=== PATIENT | female | born 1960 | race Caucasian/White ===

== ENCOUNTER → 2017-11-07 10:41 | Outpatient (CLI) | payer SELFPAY ==
[2017-11-07 12:22] LABS: Absolute Neutrophil Count 4.1 X10^3/uL (2.0-7.7); Basophil# 0.03 X10^3/uL; Basophil% 0.5 % (0-1); Eosinophil# 0.11 X10^3/uL; Eosinophils% 1.7 % (0-5); Hematocrit 40.2 % (37-47); Hemoglobin 13.7 g/dl (12.0-15.0); Lymphocyte % 25.1 % (19-41); Mean Corp Hgb Conc 34.1 g/gl (32-36); Mean Corpuscular Hgb 31.4 pg (27.0-32.0); Mean Corpuscular Volume 92.2 fL (81-99); Mean Platelet Vol. 10.6 fl (6.2-12.0); Monocyte# 0.51 X10^3/uL; Neutrophil # 4.11 X10^3/uL (2.7-7.7); Neutrophil % 64.5 % (47-70); Platelet Count 219 K/mm3 (150-450); RBC Distribution Width CV 13.8 % (11.6-14.6); RBC Distribution Width SD 46.4 fl (35.1-43.9); Red Blood Count 4.36 M/mm3 (4.2-5.4); White Blood Count 6.4 K/mm3 (4.4-11.0)
[2017-11-07 12:30] LABS: POSITIVE COUNT NO; POSITIVE DIFFERENTIAL NO; POSITIVE MORPHOLOGY NO
[2017-11-07 12:48] LABS: Hemoglobin A1c 5.2 % (4.2-6.3)
[2017-11-07 13:07] LABS: ALB/GLOB Ratio 1.2 RATIO (0.9-2.4); AST(SGOT) 16 U/L (15-37); Alanine Aminotransfer ALT/SGPT 29 U/L (13-56); Albumin, Serum 3.9 g/dL (3.2-5.0); Alkaline Phosphatase 105 U/L (45-117); BUN 16 mg/dL (7-18); BUN/Creat Ratio 21.3 RATIO (10-20); Calcium,Total 8.8 mg/dL (8.5-10.1); Chloride 106 mmol/L (98-107); Cholesterol 152 mg/dL (200); Creatinine, Serum 0.75 mg/dL (0.55-1.02); EST Glomerular Filtration Rate 85 mL/min (>60); Est Glom Filt Rate - Afr Amer 102 mL/min (>60); Globulin 3.3 g/dL (2.2-4.2); Glucose 105 mg/dL (74-106); Protein, Total 7.2 g/dL (6.4-8.2); Sodium Level 139 mmol/L (136-145); Triglycerides 58 mg/dL
[2017-11-07 13:08] LABS: Anion Gap 7 (5-15); High Density Lipoprotein 64 mg/dL; Thyroid Stim Hormone (TSH) 1.12 uIU/mL (0.358-3.74); Very Low Density Lipoprotein 12 mg/dL (5-40)
== END ==
PROVIDERS: Family Provider Family Medicine; PCP Family Medicine; Visit Provider Family Medicine
DX: N76.0 Acute vaginitis (principal); Z13.29 Encounter for screening for other suspected endocrine disorder; Z13.220 Encounter for screening for lipoid disorders; Z83.3 Family history of diabetes mellitus
CPT/HCPCS: 36415; 80053; 80061; 83036; 84443; 85025

== ENCOUNTER → 2017-11-08 16:04 | Outpatient (CLI) | payer SELFPAY ==
[2017-11-14 15:32] LABS: HPV Reflexed? NOT INDICATED
== END ==
PROVIDERS: PCP Family Medicine; Visit Provider Family Medicine
DX: Z78.0 Asymptomatic menopausal state (principal)
CPT/HCPCS: 88175; G0145

== ENCOUNTER → 2017-12-18 08:59 | Outpatient (CLI) | payer OTHER, SELFPAY ==
--- NOTE | 2017-12-18 09:08 | RAD_ITS ---
STUDY: X-RAY - RIGHT HAND REASON FOR EXAM: Pain and swelling. TECHNIQUE: 3 view(s) of the hand. COMPARISON: None. FINDINGS: Normal radiocarpal articulation. Normal distal radioulnar joint. 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 Normal carpal articulations Normal carpometacarpal articulation of the thumb. Normal second through fifth carpometacarpal joints. Normal metacarpi. Normal metacarpophalangeal joint of the thumb. Normal interphalangeal joint of the thumb. Normal proximal and distal phalanges of the thumb. Normal metacarpophalangeal joints of the second through fifth fingers. Normal proximal and distal interphalangeal joints of the second through fifth fingers. Normal phalanges of the second through fifth fingers. The soft tissue structures are unremarkable. RAD/Hand Min 3 Views IMPRESSION: Osseous lunotriquetral coalition. Otherwise, unremarkable x-ray examination of the right hand. Electronically Signed: Anup Vang MD at 10:01 EDT Tel , Service support ,
== END ==
PROVIDERS: Family Provider Family Medicine; PCP Family Medicine; Visit Provider Orthopaedic Surgery
DX: M79.641 Pain in right hand (principal)
CPT/HCPCS: 73130

== ENCOUNTER → 2020-06-18 08:41 | Outpatient (CLI) | payer MEDICAID, SELFPAY ==
[2018-10-08 08:21] VITALS: BMI 35.3
--- NOTE | 2020-06-18 09:10 | RAD_ITS ---
STUDY: X-RAY - PELVIS AND BILATERAL HIPS REASON FOR EXAM: Female, 59 years old. Bilateral hip pain x 6 months, nki TECHNIQUE: AP view of the pelvis.? 2 views of the right hip, and 2 views of the left hip were obtained. COMPARISON: None. FINDINGS: There is a non-specific bowel gas pattern. Normal visualized soft tissue structures. Normal bilateral iliac wings, sacroiliac joints and visualized sacrum. Normal bilateral superior and inferior pubic rami. Normal pubic symphysis. Normal bilateral ischial tuberosities. Normal visualized right femoral head. There is osteoarthritic spur formation of the right acetabular rim. There is mild articular joint space narrowing of the right hip. Normal visualized left femoral head. There is osteoarthritic spur formation of the left acetabular rim. There is mild articular joint space narrowing of the left hip. Disc space narrowing involving the lower lumbar spine. RAD/Hips B/L min 2 views w/ Pelvis IMPRESSION: Mild degree of joint space and involving both hip joints. Electronically Signed: Maximo Lopez, at 11:19 EDT , Service support ,
--- NOTE | 2020-06-18 09:10 | RAD_ITS ---
STUDY: X-RAY - RIGHT KNEE REASON FOR EXAM: Female, 59 years old. Pain radiating down rt leg, 6 mo, nki TECHNIQUE: 4 view(s) of the knee. COMPARISON: None. FINDINGS: Normal visualized distal femur. Normal visualized proximal tibia and fibula. Normal proximal tibiofibular articulation. Normal medial femorotibial compartment. Normal lateral femorotibial compartment. Normal patellofemoral articulation. The soft tissue structures are unremarkable. RAD/Knee 4 or More Views IMPRESSION: Normal x-ray examination of the knee. Electronically Signed: Maximo Lopez, at 11:20 EDT , Service support ,
--- NOTE | 2020-06-18 09:10 | RAD_ITS ---
STUDY: X-RAY CHEST REASON FOR EXAM: Female, 59 years old. Shortness of breath, chest pain TECHNIQUE: PA and lateral views of the chest. COMPARISON: Comparison is made with prior study dated 11/30/2015. FINDINGS: Scattered calcified granulomas. There is no demonstrated pleural abnormality. Normal size heart. Normal mediastinum and adina. Normal visualized pulmonary arteries. There is atherosclerotic calcification of the aortic arch with tortuosity. There are diffuse degenerative changes of the visualized thoracic spine. Normal visualized ribs, clavicles, and shoulders. Surgical clips are seen in the right upper quadrant suggestive of prior cholecystectomy. RAD/Chest PA and Lateral IMPRESSION: No acute abnormality is seen. Electronically Signed: Maximo Lopez, at 11:23 EDT , Service support ,
== END ==
PROVIDERS: PCP Family Medicine
DX: R06.00 Dyspnea, unspecified (principal); M25.561 Pain in right knee; M25.551 Pain in right hip
CPT/HCPCS: 71046; 73521; 73564; J7030

== ENCOUNTER → 2020-08-07 | Outpatient (CLI) | payer MEDICAID, SELFPAY ==
[2018-10-08 08:21] VITALS: BMI 35.3
--- NOTE | 2020-08-07 09:40 | BI_ITS ---
MAMMOGRAPHY - BILATERAL SCREENING REASON FOR EXAM: Female, 59 years old. Routine annual screening examination. PERTINENT HISTORY: Non-contributory. TECHNIQUE: Digital bilateral breast humera (3D mammographic acquisition) in the CC and MLO projections. 2-D mediolateral oblique (MLO) and craniocaudad (CC) views of both breasts were obtained. CAD: Full Field Digital Mammography with Computer Added Detection was performed. COMPARISON: Comparison is made with prior examination of 12/25/2005. FINDINGS: Breast Composition: There are scattered areas of fibroglandular density. There are no dominant masses or suspicious calcifications. Stable 5.5 mm nodule in the deep central lateral aspect of the right breast. This is unchanged and most likely represents a small intramammary lymph node. No other significant abnormalities are identified. There has been no significant change since the prior study. BI/SCREEN MAMM (CAD) W/HUMERA BILAT IMPRESSION: Stable bilateral screening mammogram. Yearly follow-up mammogram recommended. (A) ASSESSMENT CATEGORY: BIRADS Category 2: Benign. A letter regarding these results will be sent to the patient by the facility within 30 days. Approximately 10% of breast cancers are not detected by mammography. A normal mammogram should not delay biopsy of a clinically suspicious abnormality. [id number] Electronically Signed: Maximo Lopez, at 8:39 EST , Service support ,
== END | disposition home or self-care (01) ==
LOC: OPBI 09:37
PROVIDERS: PCP Family Medicine
DX: Z12.31 Encounter for screening mammogram for malignant neoplasm of breast (principal)
CPT/HCPCS: 77063; 77067

== ENCOUNTER 2021-04-04 15:35 | Emergency (ER) | payer MEDICAID, SELFPAY ==
[2018-10-08 08:21] VITALS: BMI 35.3
[2021-04-04 15:36] VITALS: BP 205/76; PULSE 62; RESP 12; TEMP 36.9; O2SAT 99; BMI 38.0
--- NOTE | 2021-04-04 16:49 | EDS_ITS ---
HPI History of Present Illness HPI Narrative: Patient presents with right leg pain and swelling that began today. Patient states she woke up and noticed some bruising on the medial aspect of her right proximal lower leg. Patient states the swelling has been getting worse. Patient describes the pain as burning and throbbing. Patient states nothing makes it better or worse. Patient denies any paresthesias or weakness. Patient denies any trauma or injuries. Patient is concerned that this is a DVT in her right leg. Patient states she had a history of DVTs 34 years ago after childbirth. Patient states she has not had a DVT since that time. Chief Complaint: Lower Extremity Injury Informant: patient Onset/Context/Timing Onset: Today Context: Gradual Onset Timing: Continuous Quality of Pain: Burning and Throbbing Worsened by: Nothing Relieved by: Nothing Associated Symptoms Associated Symptoms: Negative for Parasthesia, Weakness and Loss of Funtion PFSH PFS Medical History Arthritis Hypertension Severe headache Shoulder pain Home Medications cyclobenzaprine 10 mg tablet 10 mg PO TID PRN #20 tab 01/09/18 [Rx Last Taken Unknown] ibuprofen 400 mg tablet 400 mg PO TID-QID #60 tab 01/09/18 [Rx Last Taken Unknown] Allergy/AdvReac Type Severity Reaction Status Date / Time prednisolone Allergy Rash Verified 04/04/21 15:36 Family History Father Diabetes Arthritis Heart disease Mother Arthritis Hypertension Surgical History History of appendectomy History of History of cholecystectomy Social History Smoking Status: Never smoker alcohol intake: never ROS ROS ED Constitutional Constitutional ED: Denies chills or fever(s) Eyes Eyes: Denies blurry vision or change in vision ENT ENT ED: Denies rhinorrhea or sore throat Cardiovascular Cardiovascular: Denies chest pain or palpitations Respiratory/Chest Respiratory/Chest: Denies cough or dyspnea Gastrointestinal Gastrointestinal: Denies nausea or vomiting Genitourinary Genitourinary ED: Denies dysuria or hematuria Musculoskeletal Musculoskeletal: Denies back pain or neck pain Integumentary Denies abscess or rash Neurologic Neurologic: Denies headache(s) or weakness Hematologic/Lymphatic Hematologic/Lymphatic: Reports easy bruising Allergic/Immunologic Allergic/Immunologic ED: Denies mouth swelling or urticaria EXAM Physical Exam Const Vital Signs: 04/04/21 15:36 Temperature 98.4 F Temperature Source Temporal Pulse Rate 62 Respiratory Rate 12 Blood Pressure 205/76 H Blood Pressure Mean 119 Pulse Ox 99 Oxygen Delivery Method Room Air Positive well nourished, well developed and obese General Appearance ED: well developed Nutritional Appearance: obese HEENT Reports moist mucous membranes Neck full ROM Extremity Extremity Narrative: There is some tenderness and mild edema over the medial aspect of the right proximal tibia. There is no bony crepitance or step-off. There is no obvious deformity. There is also some tenderness over the medial thigh. Range of motion was limited to approximately 45 degrees of flexion of the right knee secondary to pain. Sensation was intact to light touch bilaterally in the lower extremities. Pedal pulses are equal bilaterally. Neuro oriented x3, CN's II-XII intact bilaterally, moves all extremities and no sensory deficits noted Sensorium / Orientation: alert Motor Exam: strength 5/5 throughout Psych mental status grossly normal MDM MDM MDM Narrative Medical decision making narrative: Venous duplex of the right lower extremity was obtained. There is no evidence of DVT. Patient was advised of her finding s. Patient was instructed to ice and elevate the right leg. Patient was instructed to follow-up with her primary care physician in 5 to 7 days. Patient understood and was agreeable with the plan. All questions were answered. Discharge Plan Triage Chief Complaint: Lower Extremity Injury ED Provider: Rafael Wills Dx/Rx/DC Orders Clinical Impression: Contusion of right lower leg Instructions: ED Contusion, Lower Extremity Prescriptions: No Action ibuprofen 400 mg tablet 400 mg PO TID-QID Qty: 60 RF: 0 cyclobenzaprine 10 mg tablet 10 mg PO TID PRN (Reason: muscle spasm) Qty: 20 RF: 0 Primary Care Provider: Wiliam Diaz Referrals: Wiliam Diaz MD [Primary Care Provider] - 3-5 Days Disposition Disposition: Home, Self Care
--- NOTE | 2021-04-04 17:02 | US_ITS ---
STUDY: VENOUS DOPPLER ULTRASOUND - RIGHT LOWER EXTREMITY REASON FOR EXAM: Female, 60 years old. PAIN RLE X DAYS TECHNIQUE: Ultrasound evaluation of the deep vein system to include weinstein-scale imaging and compression was performed. Weinstein-scale imaging and Doppler sonographic evaluation, including duplex spectral analysis and qualitative color flow sonography, was performed. COMPARISON: None. FINDINGS: Common Femoral Vein: Normal compression, spontaneity and augmentation. Normal color Doppler. Common Femoral Vein/Greater Saphenous Junction: Normal compression, spontaneity and augmentation. Normal color Doppler. Deep Femoral Vein: Normal compression, spontaneity and augmentation. Normal color Doppler. Femoral Proximal: Normal compression, spontaneity and augmentation. Normal color Doppler. Femoral Middle: Normal compression, spontaneity and augmentation. Normal color Doppler. Femoral Distal: Normal compression, spontaneity and augmentation. Normal color Doppler. Popliteal Vein: Normal compression, spontaneity and augmentation. Normal color Doppler. Posterior Tibial Vein: Normal compression, spontaneity and augmentation. Normal color Doppler. Peroneal Vein: Normal compression, spontaneity and augmentation. Normal color Doppler. US/Venous Duplex Imag/Limited/Uni IMPRESSION: Normal venous Doppler ultrasound of the lower extremity. Electronically Signed: Gurinder Castillo MD at 18:17 EDT Tel , Service support ,
== END 2021-04-04 18:31 | disposition home or self-care (01) ==
PROVIDERS: Emergency Provider Emergency Medicine; PCP Family Medicine
DX: S80.11XA Contusion of right lower leg, initial encounter (principal); X58.XXXA Exposure to other specified factors, initial encounter; Y93.9 Activity, unspecified; Y92.9 Unspecified place or not applicable; Y99.9 Unspecified external cause status; I10 Essential (primary) hypertension; M19.90 Unspecified osteoarthritis, unspecified site; Z79.1 Long term (current) use of non-steroidal anti-inflammatories (NSAID); Z79.899 Other long term (current) drug therapy; Z86.718 Personal history of other venous thrombosis and embolism
CPT/HCPCS: 93971; 99282

== ENCOUNTER → 2021-09-14 | Outpatient (CLI) | payer MEDICAID, SELFPAY | END | disposition home or self-care (01) | LOC: LABSPEC 13:43 | PROVIDERS: PCP Family Medicine; Referring Provider Physician Assistant; Visit Provider Physician Assistant | DX: Z11.52 Encounter for screening for COVID-19 (principal) | CPT/HCPCS: 87635; U0005; U0003 ==

== ENCOUNTER 2021-11-21 07:34 | Emergency (ER) | payer MEDICAID, SELFPAY ==
[2021-11-21 07:35] VITALS: BP 139/61; PULSE 63; RESP 16; TEMP 35.7; O2SAT 99; BMI 38.7
[2021-11-21 07:50] VITALS: BP 165/75; PULSE 96; RESP 15; O2SAT 97
--- NOTE | 2021-11-21 08:15 | EDS_ITS ---
HPI History of Present Illness HPI Narrative: Patient presents with right arm pain that has been getting worse over the past 3 days. Patient states she woke up with it. Patient states it has been constant. Patient describes her pain as aching and throbbing. Patient states pain does radiate into the right side of her chest. Patient states it is worse with breathing. Patient denies any trauma or injury. Patient denies any nausea or vomiting. Patient denies any shortness of breath or cough. Chief Complaint: Upper Extremity Injury Informant: patient Occured/Mechanism Mechanism/Context: Yes unknown Onset/Context/Timing Onset: Days (3) Quality of Pain: Aching and Throbbing Location: Right arm and right neck Worsened by: Breathing Relieved by: Nothing Associated Symptoms Associated Symptoms: Negative for Parasthesia, Weakness and Loss of Funtion PFSH COUNT INCLUDES THE [facility] Medical History Arthritis Hypertension Severe headache Shoulder pain Home Medications gabapentin 800 mg PO DAILY 11/21/21 [History Last Taken Unknown] lisinopril-hydrochlorothiazide 1 tab PO BID 11/21/21 [History Last Taken Unknown] meloxicam 7.5 mg PO BID 11/21/21 [History Last Taken Unknown] Allergy/AdvReac Type Severity Reaction Status Date / Time prednisolone Allergy Rash Verified 11/21/21 07:35 Family History Father Diabetes Arthritis Heart disease Mother Arthritis Hypertension Surgical History History of appendectomy History of History of cholecystectomy Social History Smoking Status: Never smoker alcohol intake: never ROS ROS ED Constitutional Constitutional ED: Denies chills or fever(s) Eyes Eyes: Denies blurry vision or change in vision ENT ENT ED: Denies rhinorrhea or sore throat Cardiovascular Cardiovascular: Reports chest pain; Denies palpitations Respiratory/Chest Respiratory/Chest: Denies cough or dyspnea Gastrointestinal Gastrointestinal: Denies nausea or vomiting Genitourinary Genitourinary ED: Denies dysuria or hematuria Musculoskeletal Musculoskeletal: Reports neck pain; Denies back pain Integumentary Denies abscess or rash Neurologic Neurologic: Denies headache(s) or weakness Allergic/Immunologic Allergic/Immunologic ED: Denies mouth swelling or urticaria EXAM Physical Exam Const Vital Signs: 11/21/21 07:35 11/21/21 07:50 Temperature 96.3 F L Temperature Source Temporal Pulse Rate 63 96 Respiratory Rate 16 15 Blood Pressure 139/61 H 165/75 H Blood Pressure Mean 87 105 Pulse Ox 99 97 Oxygen Delivery Method Room Air Room Air Positive well nourished, well developed and obese General Appearance ED: well developed and NAD Nutritional Appearance: obese HEENT Reports moist mucous membranes Neck supple Neck Narrative: There is tenderness over the right cervical paraspinal muscles. There is no bony crepitance or step-off. There is no midline tenderness. General: tenderness Chest Wall Chest Narrative: There is some tenderness over the right chest wall. Resp normal respiratory effort and clear to auscultation bilaterally Cardio regular rate and regular rhythm GI non-tender Palpation: soft Extremity Extremity Narrative: Range of motion of the right shoulder and elbow are limited secondary to pain. There is no edema or ecchymosis. There is no deformity. There is some mild tenderness over the right shoulder, arm, and elbow. Strength is 5/5 in the radial, median, and ulnar areas. Sensation was intact to light touch in the radial, median, and ulnar areas. Radial pulses are equal bilaterally. Neuro oriented x3, CN's II-XII intact bilaterally, moves all extremities, no focal motor deficits and no sensory deficits noted Sensorium / Orientation: alert Psych mental status grossly normal MDM MDM MDM Narrative Medical decision making narrative: EKG was obtained. On my interpretation, it showed a sinus bradycardia with a rate of 51. GA interval, QRS interval, and QTc intervals were all normal. Buena was normal. There are no acute ST or T wave changes. Portable 1 view chest x-ray was obtained. On my interpretation, lung rodriguez are clear. There is normal cardiac silhouette. Bony thorax is normal. There is no acute process noted. Radiologist also interpreted the x- ray and agrees. CBC was within normal limits. Basic metabolic profile was obtained and was within normal limits. D-dimer was normal. Initial high- sensitivity troponin was normal at 6. 2-hour repeat high-sensitivity troponin was normal at 5. CT scan of the cervical spine was obtained. There is no acute abnormality. Patient has a HEART score of 2. Patient was advised that this is low risk for acute cardiac event. Patient was advised that this may be from a pinched nerve. Patient was instructed to use ice to the area. Patient was instructed to take Tylenol or ibuprofen as needed for pain. Patient was instructed to follow-up with her primary care physician in 5 to 7 days. Patient understood and was agreeable with the plan. All questions were answered. Lab Data Attestation: I reviewed the patient's lab results. EKG Initial EKG: Attestation: I personally reviewed and interpreted this EKG as follows: Interpretation: No Acute Injury Pattern and Sinus Bradycardia (51) Discharge Plan Triage Chief Complaint: Upper Extremity Injury ED Provider: Rafael Wills Dx/Rx/DC Orders Clinical Impression: Pain in right arm Instructions: ED Pain, Acute, Uncertain Cause Prescriptions: No Action meloxicam 7.5 mg Tablet 7.5 mg PO BID RF: 0 gabapentin 800 mg Tablet 800 mg PO DAILY RF: 0 lisinopril-hydrochlorothiazide 20-25 mg Tablet 1 tab PO BID RF: 0 Primary Care Provider: Care Physician,No Primary Referrals: Care Physician,No Primary [Primary Care Provider] - Doctor,Your [STAFF PHYSICIAN] - 5-7 Days Disposition Disposition: Home, Self Care
--- NOTE | 2021-11-21 08:19 | EKG12_ITS ---
Test Reason : RUE PAIN Blood Pressure : / mmHG Vent. Rate : 051 BPM Atrial Rate : 051 BPM P-R Int : 148 ms QRS Dur : 084 ms QT Int : 448 ms P-R-T Axes : 000 004 038 degrees QTc Int : 412 ms Sinus bradycardia Otherwise normal ECG Confirmed by ALEXIS MONROE, TAMEKA ([id number]), fashion editor MONO MARTINI ([id number]) on 11/24/2021 1:24:48 PM Referred By: FABIÁN Confirmed By:TAMEKA ESPINOZA MD
--- NOTE | 2021-11-21 08:20 | CT_ITS ---
EXAM: CT CERVICAL SPINE WITHOUT INTRAVENOUS CONTRAST CLINICAL INDICATION: Right arm pain extending to the neck/ear TECHNIQUE: Helically acquired images were obtained of the cervical spine without intravenous contrast. 2D reformatted images were reviewed. This CT exam was performed using one or more of the following dose reduction techniques: automated exposure control, adjustment of the mA and/or kV according to patient size, and/or use of iterative reconstruction technique. This report was created using [employer] report generation technology. COMPARISON: None. FINDINGS: VERTEBRAE: Anterior spondylosis at multiple cervical levels. No fracture. No traumatic subluxation. No discrete lytic or blastic abnormality. Normal alignment. Normal craniocervical junction and cervicothoracic junction. DISCS/SPINAL CANAL/NEURAL FORAMINA: Disc space narrowing most pronounced at C5-C6 and C6-C7. Uncovertebral hypertrophy at C4-C5 and C5-C6 causing bilateral C6-C7 foraminal narrowing and left C5-C6 foraminal narrowing. Broad posterior disc osteophyte complex at C5-C6 mildly narrows the spinal canal but no critical canal stenosis. 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 No prevertebral soft tissue swelling. LYMPH NODES: Unremarkable. No cervical adenopathy. LUNG APICES: Unremarkable as visualized. Clear. CT/Spine Cervical without Contras IMPRESSION: No acute findings in the cervical spine. Electronically Signed: Colin Justin MD (Brooks) at 10:12 EST Reading Location ID and State: [address] [place] [address] , Service support ,
--- NOTE | 2021-11-21 08:29 | RAD_ITS ---
STUDY: X-RAY CHEST REASON FOR EXAM: Female, 61 years old. chest pain TECHNIQUE: AP COMPARISON: 06/18/2020 FINDINGS: The lungs are clear and expanded. There is no demonstrated pleural abnormality. Normal size heart. Normal mediastinum and adina. Normal visualized pulmonary arteries. There is atherosclerotic tortuosity of the aortic arch and descending thoracic aorta. No acute bony process. There is no demonstrated abnormality of the visualized soft tissue structures of the upper abdomen. RAD/Chest 1 View (Portable) IMPRESSION: Nonacute portable x-ray examination of the chest. Electronically Signed: Colin Justin MD (Brooks) at 10:10 EST Reading Location ID and State: [place] , Service support ,
[2021-11-21 08:34] LABS: Absolute Neutrophil Count 3.2 X10^3/uL (2.0-7.7); Basophil# 0.04 X10^3/uL; Basophil% 0.7 % (0-1); Eosinophil# 0.21 X10^3/uL; Eosinophils% 3.7 % (0-5); Hematocrit 37.7 % (37-47); Hemoglobin 13.5 g/dL (12.0-15.0); Lymphocyte % 27.9 % (19-41); Mean Corp Hgb Conc 35.8 g/dL (32-36); Mean Corpuscular Hgb 32.8 pg (27.0-32.0); Mean Corpuscular Volume 91.7 fL (81-99); Mean Platelet Vol. 10.4 fl (6.2-12.0); Monocyte# 0.65 X10^3/uL; Monocyte% 11.3 % (0-10); NRBC Flagged by Analyzer 0 % (0-5); Neutrophil # 3.21 X10^3/uL (2.7-7.7); Neutrophil % 56.1 % (47-70); Platelet Count 192 K/mm3 (150-450); RBC Distribution Width CV 13.1 % (11.6-14.6); RBC Distribution Width SD 43.8 fl (35.1-43.9); Red Blood Count 4.11 M/mm3 (4.2-5.4); White Blood Count 5.7 K/mm3 (4.4-11.0)
[2021-11-21] MEDS: Aspirin 81 MG TAB.CHEW 324 MG PO (08:36)
[2021-11-21] MEDS: Morphine 4 MG/ML Syringe IV (08:37)
[2021-11-21 08:43] LABS: D-Dimer Quantitative (DVT/PE) 0.42 FEU/ug/m (0.27-0.49)
[2021-11-21 08:53] VITALS: BP 150/85; PULSE 48; RESP 16; O2SAT 98
[2021-11-21 08:54] LABS: Anion Gap 6 (5-15); BUN 14 mg/dL (7-18); BUN/Creat Ratio 18.3 RATIO (10-20); Calcium,Total 8.9 mg/dL (8.5-10.1); Chloride 109 mmol/L (98-107); Creatinine, Serum 0.76 mg/dL (0.55-1.02); EST Glomerular Filtration Rate 82 mL/min (>60); Est Glom Filt Rate - Afr Amer 99 mL/min (>60); Estimated Creatinine Clearance 55.84 ml/min; Glucose 110 mg/dL (74-106); Potassium 3.7 mmol/L (3.5-5.1); Sodium Level 140 mmol/L (136-145); Troponin-I HS 5 pg/mL (3.0-54.0)
[2021-11-21 10:32] LABS: Troponin-I HS 6 pg/mL (3.0-54.0)
[2021-11-21 10:37] VITALS: BP 139/98; PULSE 58; RESP 17; O2SAT 98
[2021-11-21 11:13] VITALS: BP 148/74; PULSE 62; RESP 16; O2SAT 98
== END 2021-11-21 11:14 | disposition home or self-care (01) ==
PROVIDERS: Emergency Provider Emergency Medicine; Visit Provider Emergency Medicine
DX: M79.601 Pain in right arm (principal); I10 Essential (primary) hypertension; E66.9 Obesity, unspecified; Z79.899 Other long term (current) drug therapy
CPT/HCPCS: 71045; 72125; 80048; 84484; 85025; 85379; 93005; 96374; 99284; A4216

== ENCOUNTER 2022-04-15 07:08 | Emergency (ER) | payer MEDICAID, SELFPAY ==
[2022-04-15 07:08] VITALS: BP 179/68; PULSE 63; RESP 14; TEMP 36.6; O2SAT 100; BMI 37.0
--- NOTE | 2022-04-15 07:24 | EKG12_ITS ---
Test Reason : stomach pain Blood Pressure : / mmHG Vent. Rate : 053 BPM Atrial Rate : 053 BPM P-R Int : 172 ms QRS Dur : 090 ms QT Int : 436 ms P-R-T Axes : 000 004 036 degrees QTc Int : 409 ms Sinus bradycardia Otherwise normal ECG Confirmed by ALEXIS MONROE, TAMEKA ([id number]), script editor MONO MARTINI ([id number]) on 04/18/2022 9:25:15 AM Referred By: Parker Confirmed By:TAMEKA ESPINOZA MD
--- NOTE | 2022-04-15 07:24 | CT_ITS ---
EXAM: CT ABDOMEN AND PELVIS WITH INTRAVENOUS CONTRAST CLINICAL INDICATION: abdominal pain TECHNIQUE: Helically acquired images were obtained of the abdomen and pelvis with intravenous contrast. This CT exam was performed using one or more of the following dose reduction techniques: automated exposure control, adjustment of the mA and/or kV according to patient size, and/or use of iterative reconstruction technique. This report was created using [employer] report generation technology. CONTRAST: IV 100mL [id number] COMPARISON: None. FINDINGS: LOWER THORAX: Unremarkable. Lung bases are clear. No cardiomegaly. No pericardial effusion. ABDOMEN: LIVER: Unremarkable. Homogeneous. No focal mass. GALLBLADDER AND BILE DUCTS: Cholecystectomy clips are in place. No intra- or extrahepatic biliary ductal dilation. PANCREAS: Unremarkable. No focal cystic or solid mass. SPLEEN: Multiple splenic granulomata noted. ADRENALS: Unremarkable. No nodules. KIDNEYS AND URETERS: Unremarkable. Normal renal size and position. No hydronephrosis. STOMACH AND BOWEL: Diverticulosis of the colon noted without evidence of acute diverticulitis. PELVIS: APPENDIX: No evidence of acute appendicitis. BLADDER: Unremarkable. REPRODUCTIVE: Unremarkable as visualized. No mass. ABDOMEN and PELVIS: INTRAPERITONEAL SPACE: Unremarkable. No ascites or other fluid collection. No free air. BONES/JOINTS: The T9-T12 vertebral bodies appear fused. Prominent facet arthropathy noted at the lumbar level more pronounced on the left than right. No suspicious lytic or blastic abnormality. SOFT TISSUES: Small fat-containing supraumbilical periumbilical hernias are noted. VASCULATURE: Unremarkable. Abdominal aorta is non-dilated. LYMPH NODES: Unremarkable. No enlarged lymph nodes. CT/Abdomen/Pelvis W IV Cont ONLY IMPRESSION: 1. No acute abdominal or pelvic abnormality. 2. Diverticulosis coli. 3. Fat-containing supraumbilical and umbilical hernias. Electronically Signed: Max Dennis MD at 8:40 EDT ,
--- NOTE | 2022-04-15 07:25 | ED.VIS.GI ---
HPI HPI - GI History of Present Illness Chief Complaint: Abd Pain Detail of Chief Complaint: Abdominal pain for 1 week Informant: patient Abdominal Pain/Flank Pain Current Severity: 04/02 Narrative Narrative: Abdominal pain that started initially a week ago. She describes the pain as right upper quadrant and epigastric. Patient states that yesterday started radiating to her back. She denies nausea or vomiting. Food does not seem to affect it. She denies blood in her stool or black tarry stool. She denies fever. She denies urinary symptoms. She has not had pain like this before. Patient has had prior cholecystectomy as well as appendectomy. Prior similar symptoms: No PFSH PFSH Medical History Arthritis Hypertension Severe headache Shoulder pain Home Medications gabapentin 800 mg tablet 800 mg PO DAILY 11/21/21 [History Last Taken Unknown] lisinopril 20 mg-hydrochlorothiazide 25 mg tablet 1 tab PO BID 11/21/21 [History Last Taken Unknown] meloxicam 7.5 mg tablet 7.5 mg PO BID 11/21/21 [History Last Taken Unknown] hydrocodone-acetaminophen 5-325mg 5mg-325mg 1 tab PO Q6H PRN PRN Pain 2 days #10 TABLETS 04/15/22 [Rx Last Taken Unknown] lansoprazole 30 mg capsule,delayed release (Prevacid) 30 mg PO DAILY #14 caps 04/15/22 [Rx Last Taken Unknown] Allergy/AdvReac Type Severity Reaction Status Date / Time prednisolone Allergy Rash Verified 04/15/22 07:10 Family History Father Diabetes Arthritis Heart disease Mother Arthritis Hypertension Surgical History History of appendectomy History of History of cholecystectomy Social History Smoking Status: Never smoker alcohol intake: never ROS ROS ED Review of Systems ROS Unobtainable: other Constitutional Constitutional ED: Reports lethargy; Denies chills, fever(s), sweats or weight loss Eyes Eyes: Denies blurry vision, change in vision or diplopia ENT ENT ED: Denies rhinorrhea or sore throat Cardiovascular Cardiovascular: Denies chest pain, orthopnea, palpitations or racing heartbeat Respiratory/Chest Respiratory/Chest: Reports dyspnea and dyspnea on exertion; Denies cough, orthopnea or sputum Gastrointestinal Gastrointestinal: Reports abdominal pain; Denies diarrhea, nausea or vomiting Genitourinary Genitourinary ED: Denies dysuria, hematuria or urinary frequency Musculoskeletal Musculoskeletal: Denies arthralgias, back pain, myalgias or neck pain Integumentary Denies abscess, Abrasions or rash Neurologic Neurologic: Denies headache(s) or weakness Psychiatric Psychiatric: Denies anxiety, depression or suicidal thoughts Endocrine Endocrinology: Denies polydipsia, polyphagia or polyuria Hematologic/Lymphatic Hematologic/Lymphatic: Denies easy bleeding, easy bruising or lymphadenopathy Allergic/Immunologic Allergic/Immunologic ED: Denies mouth swelling, tongue swelling or urticaria EXAM Physical Exam Const Vital Signs: 04/15/22 07:08 04/15/22 08:44 Temperature 97.8 F Temperature Source Temporal Pulse Rate 63 60 Respiratory Rate 14 14 Blood Pressure 179/68 H 133/67 H Blood Pressure Mean 105 89 Pulse Ox 100 98 Oxygen Delivery Method Room Air Room Air Positive well nourished and well developed General Appearance ED: well developed and NAD HEENT Reports TM's clear and moist mucous membranes normocephalic and atraumatic; Negative for trauma or tenderness Tympanic Membrane ED: Yes TM's clear Eyes PERRL and EOMs intact bilaterally General Eye ED: Negative for pale conjunctiva or scleral icterus Neck no lymphadenopathy, supple and no JVD General: Negative for tenderness Chest Wall inspection of chest normal and palpation of chest normal Chest: Negative for tenderness Resp normal respiratory effort and clear to auscultation bilaterally Effort and Inspection: Negative for respiratory distress or pain with movement Auscultation: Negative for rhonchi, wheezes or diminished lung sounds Cardio regular rate, regular rhythm, S1 normal heart sound, S2 normal heart sound and no murmurs Peripheral Pulses: pulses 2+ throughout GI normal to inspection, nondistended, normoactive bowel sounds, soft to palpation, non-distended and no masses GI Narrative: Patient has tenderness palpation over the epigastric region as well as the right upper quadrant. There are some mild guarding. There is no rebound, rigidity, or peritoneal signs. Back/Spine no CVA tenderness and no thoracic nor lumbar tenderness Extremity normal to inspection General Extremety ED: Negative for edema General Extremity: Negative for edema Neuro oriented x3, CN's II-XII intact bilaterally, no sensory deficits noted and gait normal Sensorium / Orientation: awake, alert, oriented to person, oriented to place and oriented to time Motor Exam: strength 5/5 throughout and strength abnormal Psych mental status grossly normal Skin no rashes or lesions noted and no wounds MDM MDM MDM Narrative Medical decision making narrative: IV line established on arrival. Patient was given morphine and Zofran for pain. She did have good pain relief with that. Lab work was normal. Lactate normal. EKG and troponin were negative. Lipase was normal and LFTs were unremarkable. CT scan of the abdomen pelvis with IV contrast was obtained which showed umbilical hernia containing fat otherwise nothing significant on the exam. At this point etiology of patient pain is unclear. Patient will be advised to follow-up with GI if her pain persists as pain may be related to GERD or peptic ulcer disease. Patient given a prescription for Prevacid and a few [place] for severe pain as needed. Advised patient to return if black stool, hematemesis, worsening pain, fever, or condition should worsen anyway. Lab Data Attestation: I reviewed the patient's lab results. Labs: Laboratory Results - last 24 hr 04/15/22 04/15/22 04/15/22 07:21 07:21 07:21 WBC 6.3 RBC 4.19 L Hgb 13.2 Hct 39.3 MCV 93.8 MCH 31.5 MCHC 33.6 RDW Std Deviation 45.4 H RDW Coeff of Renetta 13.2 Plt Count 174 MPV 9.8 Immature Gran % (Auto) 0.500 Neut % (Auto) 55.8 Lymph % (Auto) 27.2 [place] % (Auto) 12.2 H Eos % (Auto) 3.7 Baso % (Auto) 0.6 Absolute Neuts (auto) 3.5 Absolute Lymphs (auto) 1.70 Nucleated RBC % 0 Sodium 139 Potassium 3.8 Chloride 108 H Carbon Dioxide 28.0 Anion Gap 3 L BUN 17 Creatinine 0.77 Estim Creat Clear Calc 55.11 Est GFR (MDRD) Af Amer 98 Est GFR (MDRD) Non-Af 81 BUN/Creatinine Ratio 22.2 H Glucose 96 Lactic Acid 0.7 Calcium 8.8 Total Bilirubin 0.30 AST 15 ALT 23 Alkaline Phosphatase 89 Troponin I High Sens 4 Total Protein 7.1 Albumin 3.6 Globulin 3.5 Albumin/Globulin Ratio 1.0 Lipase 89 Radiography Diagnostic Testing: Clinical Impression(s) from Imaging Studies Abdomen/Pelvis CT 04/15/22 07:24 IMPRESSION: 1. No acute abdominal or pelvic abnormality. 2. Diverticulosis coli. 3. Fat-containing supraumbilical and umbilical hernias. Electronically Signed: Max Dennis MD at 8:40 EDT , EKG Initial EKG: Attestation: I personally reviewed and interpreted this EKG as follows: Comments: Sinus rhythm with a ventricular rate of 53 beats per minute with no acute ST segment changes Discharge Plan Triage Chief Complaint: Abd Pain ED Provider: Peri Barahona Dx/Rx/DC Orders Clinical Impression: Abdominal pain Instructions: ED Abdominal Pain Unkn Cause Fem Prescriptions: New lansoprazole [Prevacid] 30 mg capsule,delayed release(DR/EC) 30 mg PO DAILY Qty: 14 0RF hydrocodone-acetaminophen 5-325 mg tablet 1 tab PO Q6H PRN PRN (Reason: Pain) 2 Days Qty: 10 0RF No Action meloxicam 7.5 mg Tablet 7.5 mg PO BID gabapentin 800 mg Tablet 800 mg PO DAILY lisinopril-hydrochlorothiazide 20-25 mg Tablet 1 tab PO BID Primary Care Provider: SHANTE VIERA CNP Referrals: Friend,Wilder, [STAFF PHYSICIAN] - 3-5 Days Care Physician,No Primary [NON-STAFF] - Disposition Disposition: Home, Self Care
[2022-04-15] MEDS: Morphine 4 MG/ML Syringe IV (07:41)
[2022-04-15] MEDS: Ondansetron 4 MG/2 ML Vial IV (07:41)
[2022-04-15] MEDS: 0.9% Normal Saline 1,000 ML 125 ML IV (07:41)
[2022-04-15 07:49] LABS: Absolute Neutrophil Count 3.5 X10^3/uL (2.0-7.7); Basophil# 0.04 X10^3/uL; Basophil% 0.6 % (0-1); Eosinophil# 0.23 X10^3/uL; Eosinophils% 3.7 % (0-5); Hematocrit 39.3 % (37-47); Hemoglobin 13.2 g/dL (12.0-15.0); Lymphocyte % 27.2 % (19-41); Mean Corp Hgb Conc 33.6 g/dL (32-36); Mean Corpuscular Hgb 31.5 pg (27.0-32.0); Mean Corpuscular Volume 93.8 fL (81-99); Mean Platelet Vol. 9.8 fl (6.2-12.0); Monocyte# 0.76 X10^3/uL; Monocyte% 12.2 % (0-10); NRBC Flagged by Analyzer 0 % (0-5); Neutrophil # 3.49 X10^3/uL (2.7-7.7); Neutrophil % 55.8 % (47-70); Platelet Count 174 K/mm3 (150-450); RBC Distribution Width CV 13.2 % (11.6-14.6); RBC Distribution Width SD 45.4 fl (35.1-43.9); Red Blood Count 4.19 M/mm3 (4.2-5.4); White Blood Count 6.3 K/mm3 (4.4-11.0)
[2022-04-15 08:06] LABS: AST(SGOT) 15 U/L (15-37); Alanine Aminotransfer ALT/SGPT 23 U/L (13-56); Albumin, Serum 3.6 g/dL (3.2-5.0); Alkaline Phosphatase 89 U/L (45-117); Anion Gap 3 (5-15); BUN 17 mg/dL (7-18); BUN/Creat Ratio 22.2 RATIO (10-20); Calcium,Total 8.8 mg/dL (8.5-10.1); Chloride 108 mmol/L (98-107); Creatinine, Serum 0.77 mg/dL (0.55-1.02); EST Glomerular Filtration Rate 81 mL/min (>60); Est Glom Filt Rate - Afr Amer 98 mL/min (>60); Estimated Creatinine Clearance 55.11 ml/min; Globulin 3.5 g/dL (2.2-4.2); Glucose 96 mg/dL (74-106); Lipase 89 U/L (73-393); Potassium 3.8 mmol/L (3.5-5.1); Protein, Total 7.1 g/dL (6.4-8.2); Sodium Level 139 mmol/L (136-145); Troponin-I HS 4 pg/mL (3.0-54.0)
[2022-04-15 08:12] LABS: Lactic Acid 0.7 mmol/L (0.4-1.9)
[2022-04-15 08:28] LABS: Bacteria 0 SEEN /hpf (None Seen); Mucous, Urine 0 SEEN /hpf (<or=2+); Red Blood Cells-Urine 0 SEEN /hpf (0-5); Squamous Epithelial Cells - UA 0 SEEN /hpf (5-10)
[2022-04-15 08:44] VITALS: BP 133/67; PULSE 60; RESP 14; O2SAT 98
[2022-04-15 08:54] LABS: Color, Urine Yellow (Yellow); Glucose, Dipstick Normal (Normal); Ketone-Dipstick Negative (Negative); Leukocyte Esterase-Dipstick 100 /ul (Negative); Nitrite-Dipstick Negative (Negative); Occult Blood-Urine Negative /ul (Negative); Protein-Dipstick Negative (Negative); Urine Bilirubin Dipstick Negative (Negative); Urine Clarity Clear (Clear); Urine Urobilinogen Normal (Normal)
[2022-04-15 09:01] LABS: White Blood Cells 0-5 SEEN /hpf (0-5)
== END 2022-04-15 09:02 | disposition home or self-care (01) ==
PROVIDERS: Emergency Provider Emergency Medicine; Visit Provider Emergency Medicine
DX: R10.11 Right upper quadrant pain (principal); R10.13 Epigastric pain; K42.9 Umbilical hernia without obstruction or gangrene; I10 Essential (primary) hypertension; M19.90 Unspecified osteoarthritis, unspecified site; Z79.1 Long term (current) use of non-steroidal anti-inflammatories (NSAID); Z79.899 Other long term (current) drug therapy; Z90.49 Acquired absence of other specified parts of digestive tract
CPT/HCPCS: 74177; 80053; 81001; 83605; 83690; 84484; 85025; 93005; 96361; 96374; 96375; 99283; J7030; Q9967; A4216; J2405

== ENCOUNTER → 2022-06-19 | Outpatient (CLI) | payer MEDICAID, SELFPAY ==
--- NOTE | 2022-06-19 10:23 | STRESSREP ---
Stress Test Report Ascites myocardial perfusion stress test. 61-year-old lady with a history of chest pain. Stress protocol: Resting EKG demonstrates normal sinus rhythm with a rate of 56 bpm normal intervals are noted resting blood pressure is 132/82 mmHg. The patient exercised according to the regular Aroldo protocol for total duration of 6 minutes patient completed stage II of the Aroldo protocol the maximum heart rate attained was 125 bpm which was 78% of max impacted heart rate the maximum workload was 7 metabolic equivalents. At rest there were no ST or T wave changes noted to suggest ischemia and at peak exercise upsloping ST changes were noted with did not meet the criteria for ischemia. No clinical angina was noted the test was terminated due to target heart rate being achieved and mild chest discomfort which resolved. Myocardial perfusion protocol. 14.1 mCi of technetium 99m sestamibi was injected at rest. The patient exercised according to regular Aroldo protocol for total duration of 6 minutes and at peak exercise 44.2 mCi of technetium 99m sestamibi was injected stress images were obtained stress and rest images were reconstructed and compared in the short axis vertical long and horizontal long axis. Gated images were also obtained. Perfusion SPECT analysis: Review of the stress images demonstrate normal uptake of tracer noted in all areas of the myocardium. The resting images similarly demonstrate normal uptake of tracer noted in all areas of the myocardium. No areas of reversibility are noted to suggest ischemia no previous infarct is noted. Gated SPECT analysis: The gated ejection fraction is 67%. Conclusion: Normal exercise myocardial perfusion stress test at a moderate workload. Preserved ejection fraction. Mild chest discomfort of unknown significance.
== END | disposition home or self-care (01) ==
LOC: CVS 06:05
PROVIDERS: Referring Provider Internal Medicine Cardiovascular Disease; Visit Provider Internal Medicine Cardiovascular Disease
DX: R07.9 Chest pain, unspecified (principal)
CPT/HCPCS: 78452; 93017; A9500; A4216

== ENCOUNTER → 2022-06-20 | Outpatient (CLI) | payer MEDICAID, SELFPAY ==
[2022-06-20 08:34] LABS: Erythrocyte Sedimentation Rate 8 mm/hr (0-30)
[2022-06-20 08:36] LABS: Absolute Lymphocyte Count 1.33 X10^3/uL (0.83-4.51); Absolute Neutrophil Count 3.7 X10^3/uL (2.0-7.7); Basophil# 0.03 X10^3/uL; Basophil% 0.5 % (0-1); Eosinophil# 0.17 X10^3/uL; Hematocrit 39.7 % (37-47); Hemoglobin 13.7 g/dL (12.0-15.0); Lymphocyte # 1.33 X10^3/ul (0.83-4.51); Lymphocyte % 23.3 % (19-41); Mean Corp Hgb Conc 34.5 g/dL (32-36); Mean Corpuscular Hgb 31.5 pg (27.0-32.0); Mean Corpuscular Volume 91.3 fL (81-99); Mean Platelet Vol. 10.1 fl (6.2-12.0); Monocyte# 0.47 X10^3/uL; Monocyte% 8.2 % (0-10); NRBC Flagged by Analyzer 0 % (0-5); Neutrophil % 64.7 % (47-70); Platelet Count 206 K/mm3 (150-450); RBC Distribution Width CV 13.2 % (11.6-14.6); RBC Distribution Width SD 44.2 fl (35.1-43.9); Red Blood Count 4.35 M/mm3 (4.2-5.4); White Blood Count 5.7 K/mm3 (4.4-11.0)
[2022-06-20 08:46] LABS: Hemoglobin A1c 5.5 % (3.8-5.6)
[2022-06-20 08:52] LABS: Vitamin B12 516 pg/mL (211-911); Vitamin D,25 Hydroxy 13.6 ng/mL
[2022-06-20 08:54] LABS: ALB/GLOB Ratio 1.1 RATIO (0.9-2.4); AST(SGOT) 17 U/L (15-37); Alanine Aminotransfer ALT/SGPT 28 U/L (13-56); Albumin, Serum 3.9 g/dL (3.2-5.0); Alkaline Phosphatase 101 U/L (45-117); Anion Gap 5 (5-15); BUN 17 mg/dL (7-18); BUN/Creat Ratio 22.7 RATIO (10-20); Bilirubin, Direct 0.13 mg/dL (0.00-0.30); Calcium,Total 9.3 mg/dL (8.5-10.1); Chloride 108 mmol/L (98-107); Creatinine, Serum 0.75 mg/dL (0.55-1.02); EST Glomerular Filtration Rate 83 mL/min (>60); Est Glom Filt Rate - Afr Amer 101 mL/min (>60); Free T3 2.6 pg/mL (2.18-3.98); Globulin 3.6 g/dL (2.2-4.2); Glucose 114 mg/dL (74-106); Magnesium 1.9 mg/dL (1.6-2.6); Protein, Total 7.5 g/dL (6.4-8.2); Sodium Level 141 mmol/L (136-145); T4 Total, Thyroxin 9.6 ug/dL (4.8-13.9); Thyroid Stim Hormone (TSH) 1.31 uIU/mL (0.358-3.74)
[2022-06-28 16:40] LABS: VITAMIN B6 9.1 ug/L (3.4-65.2); Vitamin B1, Thiamine 158.3 nmol/L (66.5-200.0)
== END | disposition home or self-care (01) ==
LOC: LAB 07:30
PROVIDERS: Referring Provider Student in an Organized Health Care Education/Training Program; Visit Provider Student in an Organized Health Care Education/Training Program
DX: G60.8 Other hereditary and idiopathic neuropathies (principal)
CPT/HCPCS: 36415; 80053; 82248; 82306; 82607; 82746; 83036; 83735; 84207; 84425; 84436; 84439; 84443; 84481; 85025; 85652

== ENCOUNTER → 2022-08-07 | Outpatient (CLI) | payer MEDICAID, SELFPAY ==
--- NOTE | 2022-08-07 17:05 | RAD_ITS ---
INDICATION: PAIN EXAMINATION/TECHNIQUE: X-RAY - XR Spine Lumbar 2 or 3 Views COMPARISON: None. FINDINGS: VERTEBRAE: Preserved vertebral body height. No fracture. No spondylolisthesis. Preservation of the normal lumbar lordosis. Severe multilevel facet ectopic. DISCS: Severe multilevel degenerative disc disease and spondylosis. INCLUDED ABDOMEN: Included bowel gas pattern is non-obstructive. RAD/Lumbar Spine 2 or 3 Views IMPRESSION: No evidence of lumbar spinal fracture or spondylolisthesis. Severe multilevel degenerative disc disease and spondylosis. Electronically Signed: Jarred Lowe MD at 17:40 EST ,
--- NOTE | 2022-08-07 17:05 | RAD_ITS ---
EXAM: XR RIGHT SHOULDER COMPLETE, 2 OR MORE VIEWS CLINICAL INDICATION: R SHOULDER PAIN TECHNIQUE: Two or more views of the right shoulder. This report was created using [employer] report generation technology. COMPARISON: October 17, 2017 FINDINGS: BONES/JOINTS: Mild degenerative changes of the acromioclavicular joint. Type II acromion with curved undersurface. No subacromial enthesophyte. No suspicious lytic or sclerotic lesions in bone. Specifically, no acute or healing fracture or malalignment. Degenerative changes on the spine multiple levels. SOFT TISSUES: Soft tissues are normal. No soft tissue swelling or gas. No radiopaque foreign body. RAD/Shoulder min 2 Views IMPRESSION: 1. No acute 4 healing fracture or malalignment. 2. Mild degenerative changes of the acromioclavicular joint. Electronically Signed: Gurpreet Siu MD at 19:02 EST ,
--- NOTE | 2022-08-07 17:15 | RAD_ITS ---
EXAM: XR BILATERAL HIPS WITH PELVIS WHEN PERFORMED, 2 VIEWS CLINICAL INDICATION: HIP PAIN TECHNIQUE: Frontal view of the bilateral hips with pelvis when performed. This report was created using [employer] report generation technology. COMPARISON: June 18, 2020. FINDINGS: BONES/JOINTS: Unremarkable. No displaced fracture. No destructive or sclerotic lesions. Note that overlapping bowel shadows may however obscure fine detail. Sacroiliac joint is unremarkable. No widening of the pubic symphysis. The articular structures are unremarkable. SOFT TISSUES: Unremarkable. No soft tissue swelling or gas. RAD/Hips B/L min 2 views w/ Pelvis IMPRESSION: Unremarkable hips for age. Electronically Signed: Gurpreet Siu MD at 19:09 EST ,
== END | disposition home or self-care (01) ==
LOC: RAD 16:58
PROVIDERS: Referring Provider Anesthesiology Pain Medicine; Visit Provider Anesthesiology Pain Medicine
DX: M25.552 Pain in left hip (principal); M25.551 Pain in right hip
CPT/HCPCS: 72100; 73030; 73521

== ENCOUNTER → 2022-09-13 | Outpatient (CLI) | payer MEDICAID, SELFPAY ==
--- NOTE | 2022-09-13 10:46 | RAD_ITS ---
STUDY: XR Chest 2 Views 09/13/2022 10:54 AM REASON FOR EXAM: Female, 62 years old. CHEST PAIN Dyspnea, and chest pain COMPARISON: 11/21/2021 TECHNIQUE: XR Chest 2 Views FINDINGS: There is no demonstrated pleural abnormality. Normal heart size. Normal mediastinum. Normal adina. Prominent appearing increased interstitial lung markings. Normal visualized pulmonary arteries. There is atherosclerotic calcification of the aortic arch with tortuosity. There are diffuse degenerative changes of the visualized thoracic spine. There is degenerative osteoarthritis of the bilateral shoulders. There is no demonstrated abnormality of the visualized soft tissue structures of the upper abdomen. RAD/Chest PA and Lateral IMPRESSION: There are no acute findings. Electronically Signed: Pop Chandler MD at 17:51 EST ,
[2022-09-13 11:21] LABS: Absolute Lymphocyte Count 1.63 X10^3/uL (0.83-4.51); Absolute Neutrophil Count 5.9 X10^3/uL (2.0-7.7); Basophil# 0.04 X10^3/uL; Basophil% 0.5 % (0-1); Eosinophils% 1.2 % (0-5); Hematocrit 39.7 % (37-47); Hemoglobin 13.4 g/dL (12.0-15.0); Lymphocyte # 1.63 X10^3/ul (0.83-4.51); Lymphocyte % 18.8 % (19-41); Mean Corp Hgb Conc 33.8 g/dL (32-36); Mean Corpuscular Hgb 31.5 pg (27.0-32.0); Mean Corpuscular Volume 93.2 fL (81-99); Mean Platelet Vol. 10.2 fl (6.2-12.0); Monocyte# 0.93 X10^3/uL; Monocyte% 10.8 % (0-10); NRBC Flagged by Analyzer 0 % (0-5); Neutrophil # 5.92 X10^3/uL (2.7-7.7); Neutrophil % 68.4 % (47-70); Platelet Count 209 K/mm3 (150-450); RBC Distribution Width SD 44.5 fl (35.1-43.9); Red Blood Count 4.26 M/mm3 (4.2-5.4); White Blood Count 8.7 K/mm3 (4.4-11.0)
[2022-09-13 11:52] LABS: BNP,B-Type NATRIURETIC PEPTIDE 72.5 pg/mL (0-100)
[2022-09-13 11:57] LABS: AST(SGOT) 15 U/L (15-37); Alanine Aminotransfer ALT/SGPT 35 U/L (13-56); Albumin, Serum 3.7 g/dL (3.2-5.0); Alkaline Phosphatase 94 U/L (45-117); Anion Gap 4 (5-15); BUN 18 mg/dL (7-18); BUN/Creat Ratio 24.7 RATIO (10-20); Bilirubin, Direct 0.08 mg/dL (0.00-0.30); Chloride 105 mmol/L (98-107); Cholesterol 173 mg/dL (200); Creatinine, Serum 0.73 mg/dL (0.55-1.02); EST Glomerular Filtration Rate 86 mL/min (>60); Est Glom Filt Rate - Afr Amer 104 mL/min (>60); Globulin 3.8 g/dL (2.2-4.2); Glucose 88 mg/dL (74-106); High Density Lipoprotein 57 mg/dL; Potassium 3.7 mmol/L (3.5-5.1); Protein, Total 7.5 g/dL (6.4-8.2); Sodium Level 138 mmol/L (136-145); Triglycerides 134 mg/dL; Very Low Density Lipoprotein 27 mg/dL (5-40)
== END | disposition home or self-care (01) ==
LOC: RAD 10:44
PROVIDERS: Referring Provider Nurse Practitioner Gerontology; Visit Provider Nurse Practitioner Gerontology
DX: R07.9 Chest pain, unspecified (principal); R06.09 Other forms of dyspnea; Z82.49 Family history of ischemic heart disease and other diseases of the circulatory system
CPT/HCPCS: 36415; 71046; 80048; 80061; 80076; 83880; 85025

== ENCOUNTER 2022-09-21 10:31 | Day surgery (SDC) | payer MEDICAID, SELFPAY ==
[2022-09-21] VITALS (9 sets, daily range): BP systolic 114–138; BP diastolic 47–73; PULSE 57–70; RESP 16–18; TEMP 36.2–36.4; O2SAT 96–100; BMI 37.8
--- NOTE | 2022-09-21 10:54 | PCM.HP.BLA ---
History and Physical Date of Admission: 09/21/22 ?61 F who presents to the office today for CP, referred by drapery head former Dr Ramírez. She had a normal exercise myocardial perfusion stress test?with preserved ejection fraction. Toprol-XL 25?was added for her suboptimally controlled HTN. Today she tells me her CP is constant, severity varies day to day, worse with walking (MARTINEZ then too), worse with heavy lifting. The constant CP which is left of sternum, radiates up to left shoulder and into her back, doesn't radiate to jaw or arm. But today she does c/o 3 days of left arm pain that started in her hand and radiates up to upper arm, fingers are swollen/ring is tight, swelling better and less pain if arm is elevated, relieved with gabapentin. ED prescribed 2 wks of lansoprazole in May, no relief of CP. Gets heartburn only if she eats tomato sauce so she avoids it. Heartburn is different from her chest pain. No OTC meds for heartburn. No acid reflux. No dysphagia. Used to regurgitate milk but lately tolerating chocolate milk. No abdominal pain. Says no abd pain since cholecystectomy for sludge, only food she can't tolerate since cholecystectomy is lettuce--gets vomiting then. Otherwise no nausea or vomiting. No diarrhea or constipation, no melena or hematochezia. No prior EGD or colonoscopy 04/15/22 CT/Abdomen/Pelvis W IV Cont ONLY IMPRESSION: 1.? No acute abdominal or pelvic abnormality. 2.? Diverticulosis coli. 3.? Fat-containing supraumbilical and umbilical hernias Exam Const General: cooperative and comfortable Nutritional Appearance: obese Orientation: alert, awake and oriented x3 Eyes Sclera: sclerae normal Resp Effort & Inspection: normal respiratory effort GI Inspection: obesity Palpation: soft, no hepatosplenomegaly, no masses and nontender Skin General: no rashes or lesions noted and no jaundice Neuro Gait: normal gait Extrem Other: left arm normal pulse, no swelling, no redness, nontender Quality Reporting Tobacco Screening (CMS 138) Smoking Status: Never smoker Assessment and Plan Assessment and Plan (1) Chest pain: ?Status:?Acute ?Plan: 61 yr old female with occasional heartburn from certain foods, but that pain differs from her chronic chest pain. No relief of her CP with PPI therapy. We will get EGD to evaluate for esophagitis, Mullins's esophagus, hiatal hernia, PUD, gastritis, H pylori. F/u 2 wks after endoscopies to discuss biopsy results. (2) Heartburn: ?Status:?Acute ?Plan: as above (3) she will also undergo screening colonoscopy as she has never had a colonoscopy. She was explained alternatives, risk, benefits including outstanding bleeding, infection, sepsis, perforation, need for emergent surgery . She will have an ASA of 1.
[2022-09-21] MEDS: Lactated Ringers 1,000 ML 15 ML IV (11:09)
--- NOTE | 2022-09-21 11:30 | IMM_PTH ---
PATIENT: MICHAEL SEGOVIA LOC: [facility] U#:[id number] AGE/SX: 62/F ROOM: RE09/21/[address]: Dr. Wilder Smith DO : 1960 BED: DIS: 09/21/2022 SPEC #: [id number] RECD: 09/22/22 08:46 STATUS: ANUM PHIL #: [id number] LULU: 09/21/22 11:[address]: Wilder Smith DEPT: IMMUNOHISTOCHEMISTRY RECD BY: Dana Key Tissues: A - Stomach, NOS Procedures: H Pylori (initial) PHYSICIAN & INSTITUTION [place] [id number] SPECIMEN INFORMATION: Tissue Source: A ? Gastric ulcer biopsy Clinical Info: Chest pain, heartburn, screening Specimen Number: [id number] CPT code: 27376 METHODOLOGY: Deparaffinized sections of prefer/formalin-fixed tissue or PAP/DQ stained slides are incubated with monoclonal/polyclonal antibodies/oligonucleotide probes. Localization is made via biotin free immunoperoxidase method. Appropriate controls are performed and reacted as expected. Results on target cell population are indicated in the following table: RESULTS: ANTIBODY / CLONE RESULT Block A H Pylori (polyclonal) negative These tests were developed and their performance characteristics determined by [facility]. They may not have been cleared or approved by the U.S. Food and Drug Administration. The FDA has determined that such clearance or approval is not necessary. The above immunohistochemical/dualISH markers are ordered and reviewed by the Pathologist. INTERPRETATION: A. Gastric ulcer, biopsy: Negative for Helicobacter pylori organisms. AM:susie 09/26/2022
--- NOTE | 2022-09-21 11:30 | COLBX_PTH ---
PATIENT: MICHAEL SEGOVIA LOC: EN U#:[id number] AGE/SX: 62/F ROOM: RE09/21/[address]: Dr. Wilder Smith DO : 1960 BED: DIS: 09/21/2022 SPEC #: [id number] RECD: 09/21/22 13:19 STATUS: ANUM LOWERYPaula #: [id number] LULU: 09/21/22 11:[address]: Wilder Smith DEPT: SURGICAL PATHOLOGY RECD BY: Beatriz Macias Tissues: A - Gastric mucous membrane B - Esophagus, NOS Procedures: Special Stain Group II Surgery Specimen Level IV Alcian Blue/PAS (control) HEADER OPERATION: Colonoscopy, EGD ([facility] [place] biopsy PRE-OP DIAGNOSIS: Chest pain, heartburn, screening TISSUE SUBMITTED: A ? Gastric ulcer biopsy, B ? Distal esophagus biopsy MICROSCOPIC DIAGNOSIS A. Gastric ulcer, biopsy: Mild chronic gastritis. See comment. B. Distal esophagus, biopsy: Gastroesophageal junctional mucosa with mild chronic and focal acute inflammation. No evidence of goblet cell metaplasia. See comment. AM:susie 09/26/2022 COMMENT A. The results of immunohistochemistry for Helicobacter pylori will be reported separately ([id number]). B. Alcian blue/PAS stain with matched control supports the above diagnosis. MICROSCOPIC DESCRIPTION Slides are reviewed. GROSS DESCRIPTION A - Received in fixative is one container labeled with the patient's name and designated gastric ulcer biopsy. The specimen consists of multiple irregular fragments of light vitale soft tissue that in aggregate measure 1 x 0.5 x 0.1 cm. The specimen is totally submitted in one cassette. B - Received in fixative is one container labeled with the patient's name and designated distal esophagus biopsy. The specimen consists of multiple irregular fragments of light vitale soft tissue that in aggregate measure 1 x 0.3 x 0.1 cm. The specimen is totally submitted in one cassette. / SJ:susie 09/22/2022 TC:3 CPT: 80615 x2, 02703
--- NOTE | 2022-09-21 12:15 | OP.EGD_ITS ---
Patient Name: Melanie Sales Procedure Date: 09/21/2022 11:42 AM Date of : 1960 Age: 62 Procedure: Upper GI endoscopy Indications: Epigastric abdominal pain, Heartburn, Failure to respond to medical treatment Providers: Wilder Smith DO Referring MD: Wilder Smith DO Medicines: Monitored Anesthesia Care Patient Profile: This is a 62 year old female. Refer to note in patient chart for documentation of history and physical. Patient has symptoms of chronic chest pain, chronic heartburn and chronic nausea. Complications: No immediate complications. Procedure: Pre-Anesthesia Assessment: - Prior to the procedure, a History and Physical was performed, and patient medications and allergies were reviewed. The risks and benefits of the procedure and the sedation options and risks were discussed with the patient. All questions were answered and informed consent was obtained. Patient identification and proposed procedure were verified by the physician in the pre-procedure area. Mental Status Examination: alert and oriented. Airway Examination: normal oropharyngeal airway and neck mobility. Respiratory Examination: clear to auscultation. CV Examination: normal. Prophylactic Antibiotics: The patient does not require prophylactic antibiotics. Prior Anticoagulants: The patient has taken no previous anticoagulant or antiplatelet agents. After reviewing the risks and benefits, the patient was deemed in satisfactory condition to undergo the procedure. The anesthesia plan was to use monitored anesthesia care (MAC). Immediately prior to administration of medications, the patient was re-assessed for adequacy to receive sedatives. The heart rate, respiratory rate, oxygen saturations, blood pressure, adequacy of pulmonary ventilation, and response to care were monitored throughout the procedure. The physical status of the patient was re-assessed after the procedure. After obtaining informed consent, the endoscope was passed under direct vision. Throughout the procedure, the patient's blood pressure, pulse, and oxygen saturations were monitored continuously. The colonoscope was introduced through the mouth, and advanced to the second part of duodenum. The upper GI endoscopy was accomplished without difficulty. The patient tolerated the procedure well. Scope In: 11:49:37 AM Scope Out: 11:54:31 AM Total Procedure Duration Time 0 hours 4 minutes 54 seconds Findings: The Z-line was irregular and was found 37 cm from the incisors. Biopsies were taken with a cold forceps for histology. Verification of patient identification for the specimen was done. Estimated blood loss was minimal. LA Grade A (one or more mucosal breaks less than 5 mm, not extending between tops of 2 mucosal folds) esophagitis with no bleeding was found 35 to 37 cm from the incisors. Biopsies were taken with a cold forceps for histology. Verification of patient identification for the specimen was done. Estimated blood loss was minimal. A small hiatal hernia was present. A benign-appearing, intrinsic moderate stenosis was found at the pylorus. This was traversed. A TTS dilator was passed through the scope. Dilation with a 15 mm pyloric balloon dilator was performed. The dilation site was examined and showed moderate improvement in luminal narrowing. Estimated blood loss was minimal. One non-bleeding cratered gastric ulcer with no stigmata of bleeding was found in the prepyloric region of the stomach. The lesion was 6 mm in largest dimension. Biopsies were taken with a cold forceps for histology. Verification of patient identification for the specimen was done. Estimated blood loss was minimal. The second portion of the duodenum was normal. Biopsies were taken with a cold forceps for histology. Verification of patient identification for the specimen was done. Estimated blood loss was minimal. Impression: - Z-line irregular, 37 cm from the incisors. Biopsied. - LA Grade A reflux esophagitis. Biopsied. - Small hiatal hernia. - Gastric stenosis was found at the pylorus. Dilated. - Non-bleeding gastric ulcer with no stigmata of bleeding. Biopsied. - Normal second portion of the duodenum. Biopsied. Recommendation: - Discharge patient to home. - Resume previous diet. - Continue present medications. - Await pathology results. - Repeat upper endoscopy in 6 months for surveillance. Procedure Code(s): --- Professional --- 93965, Esophagogastroduodenoscopy, flexible, transoral; with dilation of gastric/duodenal stricture(s) (eg, balloon, bougie) 89436, 59,51, Esophagogastroduodenoscopy, flexible, transoral; with biopsy, single or multiple CPT copyright 2017 [employer]. All rights reserved. The codes documented in this report are preliminary and upon hide and skin fleshing machine operator review may be revised to meet current compliance requirements. Wilder Smith DO 09/21/2022 12:15:09 PM This report has been signed electronically. Number of Addenda: 0 Note Initiated On: 09/21/2022 11:42 AM
--- NOTE | 2022-09-21 12:15 | OP.CCLET_ITS ---
09/21/2022 Fidel Re : Upper GI endoscopy procedure for Melanie Parra This procedure was performed on August. My impressions and recommendations are as follows: Impressions : - Z-line irregular, 37 cm from the incisors. Biopsied. - LA Grade A reflux esophagitis. Biopsied. - Small hiatal hernia. - Gastric stenosis was found at the pylorus. Dilated. - Non-bleeding gastric ulcer with no stigmata of bleeding. Biopsied. - Normal second portion of the duodenum. Biopsied. Recommendations : - Discharge patient to home. - Resume previous diet. - Continue present medications. - Await pathology results. - Repeat upper endoscopy in 6 months for surveillance. My findings are described in the full procedure note, which is enclosed. If I can be of further assistance, please feel free to contact me at . Sincerely, Wilder Smith, 09/21/2022 12:15:09 PM This report has been signed electronically.
--- NOTE | 2022-09-21 12:19 | OP.COLON_ITS ---
Patient Name: Melanie Sales Procedure Date: 09/21/2022 11:54 AM Date of : 1960 Age: 62 Procedure: Colonoscopy Indications: Screening for colorectal malignant neoplasm Providers: Wilder Smith DO Referring MD: Wilder Smith DO Medicines: Monitored Anesthesia Care Patient Profile: This is a 62 year old female. Refer to note in patient chart for documentation of history and physical. Patient has symptoms of chronic chest pain, chronic heartburn and chronic nausea. Last Colonoscopy: none. The patient's first colonoscopy is today. Complications: No immediate complications. Procedure: Pre-Anesthesia Assessment: - Prior to the procedure, a History and Physical was performed, and patient medications and allergies were reviewed. The risks and benefits of the procedure and the sedation options and risks were discussed with the patient. All questions were answered and informed consent was obtained. Patient identification and proposed procedure were verified by the physician in the pre-procedure area. Mental Status Examination: alert and oriented. Airway Examination: normal oropharyngeal airway and neck mobility. Respiratory Examination: clear to auscultation. CV Examination: normal. Prophylactic Antibiotics: The patient does not require prophylactic antibiotics. Prior Anticoagulants: The patient has taken no previous anticoagulant or antiplatelet agents. After reviewing the risks and benefits, the patient was deemed in satisfactory condition to undergo the procedure. The anesthesia plan was to use monitored anesthesia care (MAC). Immediately prior to administration of medications, the patient was re-assessed for adequacy to receive sedatives. The heart rate, respiratory rate, oxygen saturations, blood pressure, adequacy of pulmonary ventilation, and response to care were monitored throughout the procedure. The physical status of the patient was re-assessed after the procedure. After I obtained informed consent, the scope was passed under direct vision. Throughout the procedure, the patient's blood pressure, pulse, and oxygen saturations were monitored continuously. The colonoscope was introduced through the anus and advanced to the terminal ileum. The colonoscopy was performed without difficulty. The patient tolerated the procedure well. The quality of the bowel preparation was good. Scope In: 11:56:42 AM Scope Withdrawal Time 0 hours 8 minutes 11 seconds Scope Out: 12:09:04 PM Total Procedure Duration Time 0 hours 12 minutes 22 seconds Findings: The perianal and digital rectal examinations were normal. Multiple small and large-mouthed diverticula were found in the sigmoid colon and descending colon. Retroflexion in the rectum was not performed. The exam was otherwise without abnormality. A patchy area of the terminal ileum was congested. Biopsies were taken with a cold forceps for histology. Verification of patient identification for the specimen was done. Estimated blood loss was minimal. Impression: - Diverticulosis in the sigmoid colon and in the descending colon. - The examination was otherwise normal. - Congested mucosa in the terminal ileum. Biopsied. Recommendation: - Discharge patient to home. - Resume previous diet. - Continue present medications. - Await pathology results. - Repeat colonoscopy in 5 years for surveillance based on pathology results. Procedure Code(s): --- Professional --- 81304, Colonoscopy, flexible; with biopsy, single or multiple CPT copyright 2017 [employer]. All rights reserved. The codes documented in this report are preliminary and upon certified procedural coder review may be revised to meet current compliance requirements. Wilder Smith DO 09/21/2022 12:18:39 PM This report has been signed electronically. Number of Addenda: 0 Note Initiated On: 09/21/2022 11:54 AM
--- NOTE | 2022-09-21 12:19 | OP.CCLET_ITS ---
09/21/2022 Suzydk Parra Re : Colonoscopy procedure for Melanie Parra This procedure was performed on August. My impressions and recommendations are as follows: Impressions : - Diverticulosis in the sigmoid colon and in the descending colon. - The examination was otherwise normal. - Congested mucosa in the terminal ileum. Biopsied. Recommendations : - Discharge patient to home. - Resume previous diet. - Continue present medications. - Await pathology results. - Repeat colonoscopy in 5 years for surveillance based on pathology results. My findings are described in the full procedure note, which is enclosed. If I can be of further assistance, please feel free to contact me at . Sincerely, Wilder Smith, 09/21/2022 12:18:39 PM This report has been signed electronically.
== END 2022-09-21 13:22 | disposition home or self-care (01) ==
LOC: EN 10:32 → AC 10:32
PROVIDERS: Visit Provider Internal Medicine Gastroenterology
PROC: 0DJD8ZZ Inspection of Lower Intestinal Tract, Via Natural or Artificial Opening Endoscopic (ICD-10-PCS; CPT 45378; principal; 2022-09-21 11:25)
DX: Z12.11 Encounter for screening for malignant neoplasm of colon (principal); K29.50 Unspecified chronic gastritis without bleeding; K63.89 Other specified diseases of intestine; K57.30 Diverticulosis of large intestine without perforation or abscess without bleeding; K25.9 Gastric ulcer, unspecified as acute or chronic, without hemorrhage or perforation; K44.9 Diaphragmatic hernia without obstruction or gangrene; K21.00 Gastro-esophageal reflux disease with esophagitis, without bleeding; I10 Essential (primary) hypertension; Z79.899 Other long term (current) drug therapy
CPT/HCPCS: 45380; 43239; 43245; 88305; 88313; 88342; J7120; J2405

== ENCOUNTER 2022-10-13 10:00 | Outpatient (RCR) | payer MEDICAID, SELFPAY ==
--- NOTE | 2022-08-21 08:54 | HP.PTEVAL_ITS ---
Patient's Visit Information MICHAEL SEGOVIA is a 61 year old F referred to Physical Therapy by Dr. Lucas Ross MD with a diagnosis of Back pain, B hip pain, and R shoulder pain. Date of Evaluation: 08/21/22 Physical Therapist: BLAKE Sykes - Visit Plan Frequency: 2-3x /Week Duration: 2 Months Plan: 2-3X/ week for 4-8 weeks for Aquatic Therapy and if that does not work than land therapy for LE stretching (HS, hip flexor, piriformis, and IT band), core stability, LE strengthening, R shoulder AROM/PROM, scapular strength and RC strength with HEP - Subjective Back and hip pain has been there for a few years and the R shoulder has been bothering her for 6 months. She did not injure her R shoulder that she knows of. It hurts constantly and more with movement and reaching above her head and does not stop her from doing anything. She can lay on the R side for a little bit and then has to roll over. She has B Numb fingers in B hands and did have CT surgery a year ago in April... 6 months after the surgery the numb hand came back. She has no neck pain. She is R handed. She has B hip pain that she can not lay on them. This is chronic. She just started seeing Dr Ross. He recommended PT. She goes back to see him on Sep 06 but wants to see if PT helps. He did x-ray of her back, shoulder and B hips. She has not had an x-ray before. She has not seen him since. She has been on 800 Gabapetin.... only takes when she wants to sleep. She has pain in her hip and back all the time. She is not sure about PT because by the time she is done with her shift she is dragging. She really stiffens up if she sits around. She wakes up in pain. Pt has been getting bad muscle spasms for greater than 6 months and has some meds for spasms. - Pain R shoulder Pain Intensity (Out of 10): 8 B hip pain Pain Intensity (Out of 10): 8 back pain Pain Intensity (Out of 10): 8 - Objective R shoulder AROM: R shoulder flex 89 degrees and L 135 degrees, R shoulder abd 82 degrees and L shoulder abd 121 degrees, and R ER 47 and L 49, R IR L1 and L IR T12. R shoulder MMT: R shoulder flex 1.1# and L 9.3# and R ER 11.6# and L ER 16.2#. R handed: R 30# and L 35#. + HK test for impingement on the R and + empty can test for pain and slight weakness. Trunk AROM: Flex 50%, Ext 25%, SB B 50%, Rot B 75%. LE MMT: R hip flex 5.6# and L 7.9# and R knee ext 10.2# and L knee ext 14.5#, and R knee flex 8.1# and L knee flex 6.5#, R hip abd 4-/5 and L hip abd 3+/5. Gait: walks with heels almost touching with some veering and decrease stance time on the L LE. Patella DTR's: 0/3. heel and toe raises with UE support Pt is able to stand on heels and toes. Pt has increase pain w ith bridging and only able to bridge 1/2 normal ROM and gets increase R HS cramp after doing one rep. Pt has tight B HS, gastroc, IT band, hip flexor, piriformis - Balance/Special Test Scores Oswestry Low Back Score: 21 - Goals Goal 1:: I HEP Goal Time Frame: 6-8 Weeks Goal 2:: Be able to use her R arm and lift over her head with les than 2/10 pain on a daily basis Goal Time Frame: 6-8 Weeks Goal 3:: Increase LE strength (at time of eval: LE MMT: R hip flex 5.6# and L 7.9# and R knee ext 10.2# and L knee ext 14.5#, and R knee flex 8.1# and L knee flex 6.5#, R hip abd 4-/5 and L hip abd 3+/5)/ Goal Time Frame: 6-8 Weeks Goal 4:: Increase R shoulder AROM (at time of the eval: R shoulder AROM: R shoulder flex 89 degrees and L 135 degrees, R shoulder abd 82 degrees and L shoulder abd 121 degrees, and R ER 47 and L 49, R IR L1 and L IR T12). Goal Time Frame: 6-8 Weeks Goal 5:: Increase LE flexibility (HS, hip flexor, IT band to be able to Bridge without any cramping Goal Time Frame: 6-8 Weeks - Rehabilitation Potential Rehabilitation Potential: Good - Anticipated Interventions Patient/Client Instruction: Educate patient on: Condition, Plan of Care For the Purpose of:: To decrease pain, To decrease swelling/inflammation, To increase ROM, To improve nutrient delivery to tissue, To improve muscle performance and motor function, To improve ability to perform ADL's, To increase tolerance to activity/condition/position, To improve performance and independence with ADL's, To decrease level of supervision to perform tasks, To improve ability of physical actions for home/community/work/leisure, To improve gait and locomotor functions, To improve health of tissue, To decrease soft tissue restriction, To increase flexibility/ROM Therapeutic Exercise to Include: Strength training, Postural training, Flexibilty training, Neuromotor development, Passive ROM, Active ROM, Dynamic Lumbar Stabilization, Scapular Strength/Stabilization For the Purpose of:: To decrease pain, To decrease swelling/inflammation, To increase ROM, To improve nutrient delivery to tissue, To improve muscle performance and motor function, To improve ability to perform ADL's, To increase tolerance to activity/condition/position, To improve performance and independence with ADL's, To decrease level of supervision to perform tasks, To improve ability of physical actions for home/community/work/leisure, To improve gait and locomotor functions, To improve health of tissue, To decrease soft tissue restriction, To increase flexibility/ROM Manual Therapy Techniques to Include: Passive ROM, Soft tissue mobilization For the Purpose of:: To decrease pain, To decrease swelling/inflammation, To increase ROM, To improve nutrient delivery to tissue, To increase oxygenation perfusion, To improve muscle performance and motor function, To improve ability to perform ADL's, To increase tolerance to activity/condition/position Thank you for the opportunity to evaluate your patient. For Medicare and Medicare HMO plans, please review the plan of care and approve it. It will need to be FAXED BACK to us at [phone] for Medicare purposes. For Medicare only, by signing this I certify the plan of care. Please let me know if there are questions or concerns regarding this plan of care. Physician Signature: Date:
--- NOTE | 2022-10-13 11:22 | HP.PTREVAL ---
Dr. Lucas Dhaliwal MD, It has been my pleasure to treat MICHAEL SEGOVIA over the last 9 visits for Back pain, B hip pain, and R shoulder pain. Please see the progress note below for an update on the physical therapy plan of care! Subjective: PATIENT REPORTS THE WATER THERAPY HAS HELPED SOME. MY BACK PAIN AND MY RIGHT HIP PAIN ARE NOT BAD WHEN I STARTED. I CAN WALK A LOT BETTER. IT HAS REALLY HELPED MY WALKING A LOT. PATIENT REPORTS HER R SHLD PAIN IS BETTER TOO. ROMY X 1 THAT ONLY HELPED ONE DAY PER PATIENT REPORT. SHE WOULD LIKE TO CONTINUE BUT HER SCHEDULE IS REALLY BUSY. WORKING AT [employer] AND [employer]. SOME DAYS SHE WORKS 15 HOURS. SHE REPORTS HER HIP AND BACK PAIN IS BETTER WITH MVMT. FOLLOW UP PENDING WITH DR. DHALIWAL 10/18/22. PATIENT REPORTS LESS CRAMPING WITH BRIDGES NOW BUT STILL OCCURS. Objective/Function: PATIENT WAS SEEN TODAY FOR RE-ASSESSMENT OF PROGRESS TOWARD THE SET PT GOALS AND THE NEED FOR FURTHER PHYSICAL THERAPY VS READINESS FOR DISCHARGE. PATIENT IS A GOOD CANDIDATE TO CONTINUE AQUATIC THERPAY BASED ON PROGRESS MADE AND ROOM FOR FURTHER IMPRROVEMENT. PATIENT IS AGREEABLE. UPON EXAM TODAY: R shoulder AROM: R shoulder flex 136 degrees, R shoulder abd 120 DEG and R ER/ER 65/65 in supine with 70 deg abduction. R shoulder MMT: R shoulder flex 8.2# and R ER 14.6#. R handed: Podiatric Technician R 33# and L 38#. LE MMT: R hip flex 6.9# and R knee ext 12.3# and R knee flex 8.1#. R hip abd 4-/5 and L hip abd 4-/5. Lumbar Mvmt Loss: Flex - mod. Ext - mod. R SG - mod. L SG - ysabel. PATIENT C/O INCREASED R HIP PAIN WITH LUMBAR FLEXION AND R SG ROM TESTING TODAY. [ End ] Plan Plan: 2X'S week for 4-8 weeks X 9 MORE VISITS for Aquatic Therapy and if that does not work than land therapy for LE stretching (HS, hip flexor, piriformis, and IT band), core stability, LE strengthening, R shoulder AROM/PROM, scapular strength and RC strength with HEP Balance/Gait/Functional tests - Balance/Special Test Scores Oswestry Low Back Score: 13 Goals Goal 1:: I HEP Goal Time Frame: 6-8 Weeks Goal Progress: Progressing Goal 2:: Be able to use her R arm and lift over her head with les than 2/10 pain on a daily basis Goal Time Frame: 6-8 Weeks Goal Progress: Progressing Goal 3:: Increase LE strength (at time of eval: LE MMT: R hip flex 5.6# and L 7.9# and R knee ext 10.2# and L knee ext 14.5#, and R knee flex 8.1# and L knee flex 6.5#, R hip abd 4-/5 and L hip abd 3+/5)/ Goal Time Frame: 6-8 Weeks Goal Progress: Progressing Goal 4:: Increase R shoulder AROM (at time of the eval: R shoulder AROM: R shoulder flex 89 degrees and L 135 degrees, R shoulder abd 82 degrees and L shoulder abd 121 degrees, and R ER 47 and L 49, R IR L1 and L IR T12). Goal Time Frame: 6-8 Weeks Goal Progress: Progressing Goal 5:: Increase LE flexibility (HS, hip flexor, IT band to be able to Bridge without any cramping Goal Time Frame: 6-8 Weeks Goal Progress: Progressing Anticipated Interventions Patient/Client Instruction: Educate patient on: Condition, Plan of Care For the Purpose of:: To decrease pain, To decrease swelling/inflammation, To increase ROM, To improve nutrient delivery to tissue, To improve muscle performance and motor function, To improve ability to perform ADL's, To increase tolerance to activity/condition/position, To improve performance and independence with ADL's, To decrease level of supervision to perform tasks, To improve ability of physical actions for home/community/work/leisure, To improve gait and locomotor functions, To improve health of tissue, To decrease soft tissue restriction, To increase flexibility/ROM Therapeutic Exercise to Include: Strength training, Postural training, Flexibilty training, Neuromotor development, Passive ROM, Active ROM, Dynamic Lumbar Stabilization, Scapular Strength/Stabilization For the Purpose of:: To decrease pain, To decrease swelling/inflammation, To increase ROM, To improve nutrient delivery to tissue, To improve muscle performance and motor function, To improve ability to perform ADL's, To increase tolerance to activity/condition/position, To improve performance and independence with ADL's, To decrease level of supervision to perform tasks, To improve ability of physical actions for home/community/work/leisure, To improve gait and locomotor functions, To improve health of tissue, To decrease soft tissue restriction, To increase flexibility/ROM Manual Therapy Techniques to Include: Passive ROM, Soft tissue mobilization For the Purpose of:: To decrease pain, To decrease swelling/inflammation, To increase ROM, To improve nutrient delivery to tissue, To increase oxygenation perfusion, To improve muscle performance and motor function, To improve ability to perform ADL's, To increase tolerance to activity/condition/position Please do not hesitate to contact me at [phone] by phone or if you have questions or concerns regarding this new plan of care! Sincerely, Karla Velásquez, PT, Cert MDT
== END 2022-10-13 19:00 | disposition home or self-care (01) ==
LOC: PT 10:00
PROVIDERS: Referring Provider Anesthesiology Pain Medicine; Visit Provider Anesthesiology Pain Medicine
DX: M54.9 Dorsalgia, unspecified (principal); M25.559 Pain in unspecified hip; M25.519 Pain in unspecified shoulder
CPT/HCPCS: 97113; 97162; 97164

== ENCOUNTER → 2022-11-04 | Outpatient (CLI) | payer MEDICAID, SELFPAY ==
--- NOTE | 2022-11-04 09:44 | MRI_ITS ---
STUDY: MRI LUMBAR SPINE WITHOUT CONTRAST REASON FOR EXAM: Female, 62 years old. Constant low back pain and in bilateral hips. TECHNIQUE: Standardized fat and water weighted pulse sequences were obtained in the sagittal and axial planes. COMPARISON: Lumbar spine radiographs 08/07/2022. FINDINGS: T10-T11: (Sagittal only). Ankylosis of the vertebral bodies. Normal small portion of the visible hypoplastic disc. No ventral extradural defect. Normal central canal and bilateral intervertebral neural foramina. T11-T12: (Sagittal only). Partial ankylosis of the vertebral bodies. Normal hypoplastic disc and visualized portions of the endplates. No ventral extradural defect. Normal central canal and bilateral intervertebral neural foramina. T12-L1: (Sagittal only). Normal endplates. Normal disc height and morphology. No ventral extradural defect. Normal central canal and bilateral intervertebral neural foramina. Normal lumbar lordosis. There is no substantial scoliosis. Normal conus medullaris that terminates at the lower L1 vertebral body level. L1-2: Normal endplates. Normal disc height. Mild ventral extradural defect due to posterior bulging annulus. No significant facet arthropathy. Normal central canal and bilateral lateral recesses. Normal bilateral intervertebral neural foramina. L2-3: Normal endplates. Normal disc height. Mild ventral extradural defect due to posterior bulging annulus. No significant facet arthropathy. Normal central canal and bilateral lateral recesses. Normal bilateral intervertebral neural foramina. L3-4: Normal endplates. Normal disc height. Minimal ventral extradural defect due to posterior bulging annulus. Mild left degenerative facet arthropathy. Normal right facet joint. Normal central canal and bilateral lateral recesses. Normal bilateral intervertebral neural foramina. L4-5: Modic type II degenerative vertebral marrow fat infiltration underneath the left side of the vertebral endplates. Mild disc space height narrowing. Minimal ventral extradural defect due to small posterior bulging annulus. Mild to moderate left degenerative facet arthropathy. Mild right degenerative facet arthropathy. Mild central canal stenosis with an AP canal diameter of 9 mm. Normal bilateral lateral recesses. Mild stenosis of the left intervertebral neural foramen. Normal right intervertebral neural foramen. L5-S1: Mild Modic type II degenerative vertebral marrow fat infiltration underneath the right side of the vertebral endplates. Normal disc height. No ventral extradural defect. Moderate left degenerative facet arthropathy. Mild to moderate right degenerative facet arthropathy. Normal central canal and bilateral lateral recesses. Normal bilateral intervertebral neural foramina. Normal visualized sacral ala. Normal visualized paraspinous soft tissue structures. MRI/Spine Lumbar (Routine) IMPRESSION: 1. No MRI evidence of lumbar extruded disc fragment, disc protrusion or nerve root displacement. 2. Moderate L5-S1 degenerative facet arthropathy and mild to moderate right L5-S1 degenerative facet arthropathy. 3. Mild central canal stenosis at L4-5 disc space level with an AP canal diameter 9 mm, small posterior bulging annulus and mild to moderate left degenerative facet arthropathy. Electronically Signed: Watson Sarabia MD at 11:32 EST ,
== END | disposition home or self-care (01) ==
LOC: MRI 09:37
PROVIDERS: Visit Provider Anesthesiology Pain Medicine
DX: M54.16 Radiculopathy, lumbar region (principal)
CPT/HCPCS: 72148

== ENCOUNTER → 2022-12-25 | Outpatient (CLI) | payer MEDICAID, SELFPAY ==
--- NOTE | 2022-12-25 17:06 | RAD_ITS ---
STUDY: X-RAY - RIGHT SHOULDER REASON FOR EXAM: Female, 62 years old. PAIN TECHNIQUE: 3 view(s) of the shoulder. COMPARISON: August 07, 2022 right shoulder x-ray FINDINGS: There is mild degenerative arthrosis of the glenohumeral articulation. There is degenerative arthrosis of the acromioclavicular joint without inferior osseous spur formation. Normal acromion. Normal humeral head and visualized proximal humerus. The soft tissue structures are unremarkable. Normal visualized pulmonary apex. There is visualized degenerative change in the thoracic spine. RAD/Shoulder min 2 Views IMPRESSION: Degenerative change of the right shoulder. No visualized acute fracture. Electronically Signed: Marisel Huerta MD at 5:45 EDT ,
== END | disposition home or self-care (01) ==
LOC: RAD 16:54
PROVIDERS: Visit Provider Anesthesiology Pain Medicine
DX: M25.511 Pain in right shoulder (principal)
CPT/HCPCS: 73030

== ENCOUNTER 2024-05-11 18:34 | Emergency (ER) | payer OTHER, SELFPAY ==
[2024-05-11 18:35] VITALS: BP 173/80; PULSE 70; RESP 18; TEMP 36.5; O2SAT 98; BMI 40.2
--- NOTE | 2024-05-11 19:10 | RAD_ITS ---
RAD/Foot min 3 Views IMPRESSION: No acute findings in the left foot. Electronically Signed: Pop Chandler MD at 19:51 EDT ,
--- NOTE | 2024-05-11 19:10 | RAD_ITS ---
EXAM: XR LEFT ANKLE COMPLETE, 3 OR MORE VIEWS CLINICAL INDICATION: fall pain TECHNIQUE: Frontal, lateral and oblique views of the left ankle. COMPARISON: No relevant prior studies available. FINDINGS: BONES/JOINTS: There is an enthesophyte involving the posterior superior calcaneus at the site of insertion of the Achilles tendon. Calcaneal spur. No acute fracture. No subluxation. Normal alignment. Preservation of the joint space. No sclerotic or destructive changes observed. SOFT TISSUES: Unremarkable. No soft tissue swelling or gas. No radiopaque foreign body. RAD/Ankle min 3 Views IMPRESSION: No acute findings in the left ankle. Electronically Signed: Pop Chandler MD at 19:51 EDT ,
--- NOTE | 2024-05-11 19:42 | EX.ED.GENINJ ---
HPI History of Present Illness Chief Complaint: Fall Narrative Narrative: Patient is a 63-year-old female past medical history of hypertension, DVT, anemia, GERD who presents to the emerged part with chief complaint of left ankle pain. Patient states that she does not follow with a doctor currently and has not any medications daily. She states that while at work today around 11 AM she was walking and she tripped over her foot. States that her right ankle kind of gave out on her and caused her to fall landing forward. She states that she tried to catch herself she states that she did hit her head on the sidewalk but she states that she did not pass out and denies any blood thinning medications. 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 States that she ate multiple times has not had any episodes of emesis. Patient states that around 7:00 she noted the pain in her foot worsened prompting her to come here for further evaluation management as well as her advisor did as well. [facility] Medical History Wears dentures Wears glasses Post-menopausal History of steroid therapy Anemia DVT (deep venous thrombosis) Back pain Injury of head and neck Migraine headache Leg cramps Shortness of breath on exertion History of edema History of echocardiogram History of stress test Cardiology follow-up encounter Chest pain GERD (gastroesophageal reflux disease) Obesity Essential hypertension Severe headache Shoulder pain Arthritis Home Medications ?Medication ?Instructions ?Recorded ?Last Taken ?Type lisinopril 20 1 tab PO BID 11/21/21 Unknown History mg-hydrochlorothiazide 25 mg tablet meloxicam 7.5 mg tablet 7.5 mg PO BID 11/21/21 Unknown History gabapentin 400 mg capsule 400 mg PO BID PRN Pain 05/31/22 Unknown History metoprolol succinate 25 mg 25 mg PO DAILY #90 tabs 05/31/22 Unknown Rx tablet,extended release 24 hr (Toprol XL) albuterol sulfate 90 mcg/actuation 2 puff inhalation Q6H PRN SOB 09/13/22 Unknown History aerosol inhaler pantoprazole 40 mg tablet,delayed 40 mg PO DAILY #90 tabs 12/20/22 Unknown Rx release sucralfate 1 gram tablet 1 g PO QAC #90 tabs 12/20/22 Unknown Rx Allergy/AdvReac Type Severity Reaction Status Date / Time Penicillins Allergy Mild Hives Verified 05/11/24 18:35 prednisolone Allergy Rash Verified 05/11/24 18:35 Family History Father Diabetes Arthritis Heart disease CAD (coronary artery disease) CABG, PCI Myocardial infarction, Onset Age: 58 Mother Arthritis Hypertension Myocardial infarction, Onset Age: 79 CAD (coronary artery disease) CABG Brother Myocardial infarction, Onset Age: 58 CABG CAD (coronary artery disease) CABG Brother Myocardial infarction, Onset Age: 56 Surgical History History of carpal tunnel surgery of right wrist History of cholecystectomy History of appendectomy History of Social History Smoking Status: Never smoker alcohol intake: never substance use type: does not use caffeine: Yes (caffeine pills) ROS ROS ED ROS Narrative Constitutional: Denies any headaches, fevers, chills, lightness, dizziness Eyes: Denies chest pain or palpitations Cardiovascular: Denies coughing wheezing shortness of breath Respiratory: Denies coughing wheezing shortness of breath Abdomen: Denies abdominal pain nausea vomit diarrhea : Denies any urinary symptoms Neurological: Denies any numbness, weakness, tingling Musculoskeletal: Complains of left ankle pain as noted above Skin: Denies rashes or lesions EXAM Physical Exam Narrative Exam Narrative: General: Patient was lying in bed rest comfortably did not appear to be in acute distress Head: Atraumatic, normocephalic Eyes: PERRL bilaterally, EOMI bilateral, no conjunctival injection noted Neck: Soft, supple, trachea midline, no tenderness palpation midline cervical spine has full range of motion of her neck no pain elicited Cardiovascular: Regular rate and rhythm no murmurs gallops rubs noted Respiratory: Clear to auscultation bilaterally no rales rhonchi wheeze noted Abdomen: Soft, nondistended, nontender to palpation bowel sounds present x 4 Musculoskeletal: No tenderness palpation midline thoracolumbar spine, all other joints taken through full range of motion and all bony prominences palpated no pain elicited Extremities: +5/5 strength noted in the bilateral upper and lower extremities, no pedal edema on exam, patient does have tenderness to palpation of the dorsum of her left foot Neurological: Patient following commands knew that she was at [facility] year is 2023 Skin: Warm, dry, intact Const Vital Signs: 05/11/24 18:35 05/11/24 18:57 05/11/24 20:54 Temperature 97.7 F L 98 F Temperature Source Temporal Pulse Rate 70 71 Respiratory Rate 18 16 Respiratory Effort Normal Respiratory Depth Normal Respiratory Pattern Normal Blood Pressure 173/80 H 161/69 H Blood Pressure Mean 111 99 Pulse Ox 98 99 Oxygen Delivery Method Room Air Room Air MDM MDM MDM Narrative Medical decision making narrative: Patient is a 63-year-old female who presents to the emergency department after mechanical fall with a chief complaint of left foot pain. Patient will have x-ray obtained here on the differential diagnose includes but not limited to ankle sprain, metatarsal fracture. Once the workup is obtained reviewed she will be reevaluated. . Patient's x-ray of her ankle showed no acute findings in the left ankle. Patient's x-ray of her left foot showed no acute fractures or dislocations. Discussed results with the patient and she would like to go home. She was encouraged to ice elevate and rotate ibuprofen Tylenol [id number] for pain control. She was encouraged to ambulate as tolerated. She would like to go home all question concerns answered she is discharged home in stable condition. She is encouraged return with worsening symptoms or other concerns. Radiography Diagnostic Testing: Clinical Impression(s) from Imaging Studies Ankle X-Ray 05/11/24 19:10 IMPRESSION: No acute findings in the left ankle. Electronically Signed: Pop Chandler MD at 19:51 EDT , Foot X-Ray 05/11/24 19:10 IMPRESSION: No acute findings in the left foot. Electronically Signed: Pop Chandler MD at 19:51 EDT , Discharge Plan Triage Chief Complaint: Fall ED Provider: Blanco,Trevin Dx/Rx/DC Orders Clinical Impression: Fall, Ankle pain, left Prescriptions: No Action gabapentin 400 mg capsule 400 mg PO BID PRN (Reason: Pain) metoprolol succinate [Toprol XL] 25 mg tablet extended release 24 hr 25 mg PO DAILY Qty: 90 2RF albuterol sulfate 90 mcg/actuation HFA aerosol inhaler 2 puff inhalation Q6H PRN (Reason: SOB) sucralfate 1 gram tablet 1 g PO QAC Qty: 90 0RF pantoprazole 40 mg tablet,delayed release (DR/EC) 40 mg PO DAILY Qty: 90 0RF meloxicam 7.5 mg Tablet 7.5 mg PO BID lisinopril-hydrochlorothiazide 20-25 mg Tablet 1 tab PO BID Primary Care Provider: Care Physician,No Primary Referrals: Care Physician,No Primary [Primary Care Provider] - Kevin Simms MD [Med Staff - Active Staff] - Print Language: Lithuanian Disposition Disposition: Home, Self Care
[2024-05-11 20:54] VITALS: BP 161/69; PULSE 71; RESP 16; TEMP 36.6; O2SAT 99
== END 2024-05-11 21:24 | disposition home or self-care (01) ==
PROVIDERS: Emergency Provider Emergency Medicine; Visit Provider Emergency Medicine
DX: M25.572 Pain in left ankle and joints of left foot (principal); I10 Essential (primary) hypertension; W01.10XA Fall on same level from slipping, tripping and stumbling with subsequent striking against unspecified object, initial encounter; Y99.0 Civilian activity done for income or pay; Z90.49 Acquired absence of other specified parts of digestive tract
CPT/HCPCS: 73610; 73630; 99282

== ENCOUNTER → 2024-07-12 | Outpatient (CLI) | payer OTHER, SELFPAY ==
--- NOTE | 2024-07-12 07:26 | MRI_ITS ---
INDICATION: knee pain/ lock EXAMINATION: MRI - LEFT MR Knee W/O Contrast TECHNIQUE: Multiplanar and multisequence MR images of the LEFT knee. IV Contrast Dosage and Agent: None. COMPARISON: Prior study dated: Radiographs from 06/16/2024 FINDINGS: BONE: There is no fracture. Significant marrow edema noted along the medial joint line, particularly in the medial femoral condyle peripherally. Small amount of edema at the medial tibial plateau as well. JOINT: No pathologic effusion, synovial hypertrophy, or intra-articular body. MUSCLES: Unremarkable. MENISCI: The lateral meniscus is intact. There is a complex tear at the posterior horn and body of the medial meniscus with intermediate signal and diminished overall size of the meniscus. There is a horizontal component at the posterior horn, series 5 image 10. CRUCIATE LIGAMENTS: Anterior and posterior cruciate ligaments are intact. COLLATERAL LIGAMENTS: Medial collateral ligament and lateral collateral ligamentous complex, inclusive of the popliteal tendon, are intact. CARTILAGE: Mild chondral thinning at the medial compartment. No defects are seen. Small marginal osteophytes in all 3 compartments. OTHER SOFT TISSUES: Mild superficial edema anterior to the patellar tendon. No Rodriguez''s cyst. MRI/Lower Ext Joint Only (Routine) IMPRESSION: Complex tear of the posterior horn and body of the medial meniscus. Bone marrow edema involving the peripheral aspect of the medial femoral condyle and medial tibial plateau. No fracture line identified. Tricompartmental small marginal osteophytes. Electronically Signed: Fausto Faust MD at 6:43 EDT ,
== END | disposition home or self-care (01) ==
LOC: MRI 07:10
PROVIDERS: PCP Family Medicine; Referring Provider Physician Assistant; Visit Provider Physician Assistant
DX: S83.92XA Sprain of unspecified site of left knee, initial encounter (principal); X58.XXXA Exposure to other specified factors, initial encounter
CPT/HCPCS: 73721

== ENCOUNTER → 2024-07-24 | Outpatient (CLI) | payer MEDICAID, SELFPAY ==
[2024-07-24 13:10] LABS: Absolute Lymphocyte Count 1.27 X10^3/uL (0.83-4.51); Absolute Neutrophil Count 4.4 X10^3/uL (2.0-7.7); Basophil# 0.04 X10^3/uL; Basophil% 0.6 % (0-1); Eosinophil# 0.27 X10^3/uL; Eosinophils% 4.1 % (0-5); Hematocrit 39.1 % (37-47); Hemoglobin 13.2 g/dL (12.0-15.0); Lymphocyte # 1.27 X10^3/ul (0.83-4.51); Lymphocyte % 19.4 % (19-41); Mean Corp Hgb Conc 33.8 g/dL (32-36); Mean Corpuscular Hgb 31.4 pg (27.0-32.0); Mean Corpuscular Volume 92.9 fL (81-99); Mean Platelet Vol. 9.6 fl (6.2-12.0); Monocyte# 0.56 X10^3/uL; Monocyte% 8.5 % (0-10); NRBC Flagged by Analyzer 0 % (0-5); Neutrophil # 4.38 X10^3/uL (2.7-7.7); Neutrophil % 66.9 % (47-70); Platelet Count 194 K/mm3 (150-450); RBC Distribution Width SD 43.9 fl (35.1-43.9); Red Blood Count 4.21 M/mm3 (4.2-5.4); White Blood Count 6.6 K/mm3 (4.4-11.0)
[2024-07-24 13:13] LABS: Vitamin B12 606 pg/mL (211-911); Vitamin D,25 Hydroxy 16.4 ng/mL
[2024-07-24 13:16] LABS: ALB/GLOB Ratio 1.1 RATIO (0.9-2.4); AST(SGOT) 20 U/L (15-37); Alanine Aminotransfer ALT/SGPT 36 U/L (13-56); Albumin, Serum 3.6 g/dL (3.2-5.0); Alkaline Phosphatase 110 U/L (45-117); Anion Gap 5 (5-15); BUN 16 mg/dL (7-18); BUN/Creat Ratio 20.3 RATIO (10-20); Calcium,Total 8.9 mg/dL (8.5-10.1); Chloride 108 mmol/L (98-107); Cholesterol 174 mg/dL (200); Creatinine, Serum 0.79 mg/dL (0.55-1.02); EST Glomerular Filtration Rate 78 mL/min (>60); Est Glom Filt Rate - Afr Amer 94 mL/min (>60); Ferritin 184 ng/mL (8-252); Globulin 3.3 g/dL (2.2-4.2); Glucose 132 mg/dL (74-106); High Density Lipoprotein 40 mg/dL; Magnesium 2.1 mg/dL (1.6-2.6); Protein, Total 6.9 g/dL (6.4-8.2); Sodium Level 138 mmol/L (136-145); Triglycerides 139 mg/dL; Very Low Density Lipoprotein 28 mg/dL (5-40)
== END | disposition home or self-care (01) ==
LOC: VSLAB 10:54
PROVIDERS: PCP Family Medicine; Visit Provider Family Medicine
DX: R25.2 Cramp and spasm (principal); Z13.6 Encounter for screening for cardiovascular disorders
CPT/HCPCS: 36415; 80053; 80061; 82306; 82607; 82728; 83735; 84443; 85025

== ENCOUNTER → 2024-12-06 | Outpatient (CLI) | payer MEDICAID, SELFPAY ==
--- NOTE | 2024-12-06 08:53 | RAD_ITS ---
PROCEDURE: Lumbar spine radiographs REASON FOR EXAM: Pain, degenerative disc disease TECHNIQUE: Five views of the lumbar spine COMPARISON: None. FINDINGS: See impression RAD/L/S Spine Min 4 Views IMPRESSION: Vertebral body heights are within normal limits. Alignment is satisfactory. M ild multilevel disc space narrowing. Moderate to advanced facet arthropathy from L3 through S1. 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 Mild degenerative changes of the sacroiliac joints. Negative for pars defects. Reading Location: [facility]
[2024-12-06 09:22] LABS: Absolute Lymphocyte Count 1.46 X10^3/uL (0.83-4.51); Absolute Neutrophil Count 2.7 X10^3/uL (2.0-7.7); Basophil# 0.03 X10^3/uL; Basophil% 0.6 % (0-1); Eosinophils% 4.1 % (0-5); Hematocrit 39.5 % (37-47); Hemoglobin 13.7 g/dL (12.0-15.0); Lymphocyte # 1.46 X10^3/ul (0.83-4.51); Lymphocyte % 29.9 % (19-41); Mean Corp Hgb Conc 34.7 g/dL (32-36); Mean Corpuscular Hgb 31.4 pg (27.0-32.0); Mean Corpuscular Volume 90.6 fL (81-99); Mean Platelet Vol. 9.7 fl (6.2-12.0); Monocyte# 0.48 X10^3/uL; Monocyte% 9.8 % (0-10); NRBC Flagged by Analyzer 0 % (0-5); Neutrophil # 2.71 X10^3/uL (2.7-7.7); Neutrophil % 55.4 % (47-70); Platelet Count 191 K/mm3 (150-450); RBC Distribution Width CV 12.9 % (11.6-14.6); RBC Distribution Width SD 42.4 fl (35.1-43.9); Red Blood Count 4.36 M/mm3 (4.2-5.4); White Blood Count 4.9 K/mm3 (4.4-11.0)
[2024-12-06 10:18] LABS: Hemoglobin A1c 5.7 % (<=5.6)
[2024-12-06 10:42] LABS: ALB/GLOB Ratio 1.5 RATIO (0.9-2.4); AST(SGOT) 25 U/L (<=31); Alanine Aminotransfer ALT/SGPT 23 U/L (<=34); Albumin, Serum 4.3 g/dL (3.4-4.8); Alkaline Phosphatase 98 U/L (35-104); Anion Gap 13 (5-15); BUN 12 mg/dL (4-19); BUN/Creat Ratio 15.7 RATIO (10-20); Bilirubin, Direct 0.31 mg/dL (0.00-0.30); CPK Total, Creatine Kinase 66 U/L (24-195); Calcium,Total 9.5 mg/dL (7.6-11.0); Carbon Dioxide 22.2 mmol/L (21.0-32.0); Chloride 104 mmol/L (98-108); Creatinine, Serum 0.75 mg/dL (0.70-1.20); EST Glomerular Filtration Rate 90 (>60); Free T3 3.6 pg/mL (2.18-3.98); Globulin 2.9 g/dL (2.2-4.2); Glucose 109 mg/dL (70-99); Protein, Total 7.2 g/dL (5.9-8.4); Sodium Level 140 mmol/L (133-145); T4 Total, Thyroxin 9.5 ug/dL (4.8-13.9); Total Bilirubin 0.77 mg/dL (0.00-1.30); Vitamin B12 608 pg/mL (180-914)
[2024-12-06 10:43] LABS: Erythrocyte Sedimentation Rate 10 mm/hr (0-30)
[2024-12-06 10:53] LABS: CRP < 3.00 mg/L (0.0-3.0)
== END | disposition home or self-care (01) ==
LOC: LAB 08:48
PROVIDERS: PCP Family Medicine; Referring Provider Student in an Organized Health Care Education/Training Program; Visit Provider Student in an Organized Health Care Education/Training Program
DX: G60.8 Other hereditary and idiopathic neuropathies (principal)
CPT/HCPCS: 36415; 72110; 80053; 82248; 82306; 82550; 82607; 82746; 83036; 84207; 84425; 84436; 84439; 84443; 84481; 85025; 85652; 86140

== ENCOUNTER 2025-01-28 14:30 | Outpatient (RCR) | payer MEDICAID, SELFPAY ==
--- NOTE | 2024-12-22 17:52 | HP.PTEVAL_ITS ---
Patient's Visit Information Visit Information Visit Information: MICHAEL SEGOVIA is a 64 year old F referred to Physical Therapy by Dr. Darrian Perera DPM with a diagnosis of ACHILLES TIBIAL TENDONITIS ,RIGHT ,POSTERIOR TENDONITIS RIGHT ,. Date of Evaluation: 12/22/24 Physical Therapist: Paul Crockett, PT, Cert MDT, OCS Visit Plan Frequency: 2x /Week Duration: 6 Weeks Plan: PT INTERVENTIONS FLEXABILITY G-S ,MANUAL THERAPY ACHILLES AND CALF (HAWK TOOLS /STM/STICK) ,US /CP AND ECCENTRIC STRENGTHENING CALF AND/OR HIGH LOAD SLOW ISAAK Subjective Subjective: This 64 y/o female presents to physical therapy with Posterior tibial tendonitis and and achilles tendonitis right foot . Patient has had right foot pain for ~ 1 year . Symptoms progressively worse. Patient pain located achilles tendon , Seen Dr recommended PT and tried injections cortisone. Medication meloxicam .Patient had imaging -. Provided overcounted orthotics. Patient aggravating factors factors standing and walking on feet all day. Alleviating factors rest. C/O paresthesia feet plantar aspect. Patient sleeping well . Patient condition affects QOL and job demands. Patient goals to decrease pain. SOCIAL: VOCATION: SINGLE Pain Right Foot: Pain Intensity (Out of 10): 4 Pain Intensity Range: 10 Objective Objective: POSTURE: pes planus NEURO: c/o paresthesia feet ,light touch intact GAIT: ambulates with reciprocal pattern PALAPTION: TTP -tender G-S lateral > medial tender ,PTT AROM: ankle dorsiflexion 5 degrees ,plantarflexion 60 degrees ,inversion 30 degrees ,eversion 5 degrees MMT: ankle stabilizers 4/5 G-S FLEXABILITY: min/mod tight Balance/Special Test Scores Lower Extremity Functional Score: 42 Goals Goal 1:: Patient to be I with HEP for foot Goal Time Frame: 4-6 Weeks Goal 2:: Patient to demonstrate 50% improvement with less pain and improved function with job demands Goal Time Frame: 4-6 Weeks Goal 3:: Patient to decrease tenderness throughout calf and Achilles to improve walking and standing by 80% Goal Time Frame: 4-6 Weeks Goal 4:: Patient to improve LEFS score by 5 points to improve QOL and function Goal Time Frame: 4-6 Weeks Rehabilitation Potential Physical Therapy Diagnosis: This patient has jackie tendonitis along with tender PTT with TTP along with ACHILLES and G-S impairs gait ,standing causes deficits with job standing and walking all day thus benefit from skilled PT Rehabilitation Potential: Good Anticipated Interventions Patient/Client Instruction: Educate patient on: Condition and Plan of Care For the Purpose of:: To decrease pain, To increase ROM, To improve muscle performance and motor function, To improve ability to perform ADL's, To increase tolerance to activity/condition/position, To improve performance and independence with ADL's, To improve ability of physical actions for home/community/work/leisure, To improve gait and locomotor functions, To improve health of tissue, To decrease soft tissue restriction, To increase f lexibility/ROM and To improve tolerance to ADL's Therapeutic Exercise to Include: Strength training, Endurance training, Flexibilty training, Passive ROM and Active ROM Comment: ECCENTRIC CALF For the Purpose of:: To decrease pain, To increase ROM, To improve muscle performance and motor function, To improve ability to perform ADL's, To increase tolerance to activity/condition/position, To improve ability of physical actions for home/community/work/leisure, To improve health of tissue, To decrease soft tissue restriction, To increase flexibility/ROM, To improve endurance and To reduce risk of recurrence Manual Therapy Techniques to Include: Mobilization and Soft tissue mobilization Comment: HAWK TOOLS For the Purpose of:: To decrease pain, To increase ROM, To improve nutrient delivery to tissue, To increase oxygenation perfusion, To improve health of tissue, To decrease soft tissue restriction and To increase flexibility/ROM TENS: Yes IF ES: Yes Cryotherapy (ice pack, ice massage): Yes Ultrasound (thermal/non thermal): Yes For the Purpose of:: To decrease pain, To improve nutrient delivery to tissue, To increase oxygenation perfusion, To improve health of tissue and To decrease soft tissue restriction Text: Thank you for the opportunity to evaluate your patient. For Medicare and Medicare HMO plans, please review the plan of care and approve it. It will need to be FAXED BACK to us at [phone] for Medicare purposes. For Medicare only, by signing this I certify the plan of care. Please let me know if there are questions or concerns regarding this plan of care. Physician Signature: Date:____
--- NOTE | 2025-01-28 15:08 | HP.PTDCSUM_ITS ---
Discharge Summary D/C summary: It has been my pleasure to treat MICHAEL SEGOVIA referred by Dr. Darrian Perera DPM, with the diagnosis of ACHILLES TIBIAL TENDONITIS ,RIGHT ,POSTERIOR TENDONITIS RIGHT , for a total of 11 visit(s). Discharge Date: Please see the following information for a summary of their discharge status. Subjective Subjective: Patient is doing great . 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 to see DR aldrich Pain Right Foot: Pain Intensity (Out of 10): 0 Overall Improvement % Improvement: 98 Objective Objective/Function: POSTURE: pes planus NEURO: c/o paresthesia feet ,light touch intact GAIT: ambulates with reciprocal pattern PALAPTION: unremarkable AROM: ankle dorsiflexion 5 degrees ,plantarflexion 60 degrees ,inversion 35 degrees ,eversion 5 degrees MMT: ankle stabilizers 4/5 G-S FLEXABILITY: min tight Goals Goal 1:: Patient to be I with HEP for foot Goal Progress: Goal Met Goal 2:: Patient to demonstrate 50% improvement with less pain and improved function with job demands Goal Progress: Goal Met Goal 3:: Patient to decrease tenderness throughout calf and Achilles to improve walking and standing by 80% Goal Progress: Goal Met Goal 4:: Patient to improve LEFS score by 5 points to improve QOL and function Goal Progress: Goal Met Plan Plan: D/C D/C Information d/c sentence: If there are questions or concerns regarding this patient's physical therapy, please feel free to call me at [phone]. Thank you for the referral of this patient. Sincerely, Paul Crockett, PT, Cert MDT, OCS Balance/Gait/Functional tests Balance/Special Test Scores Lower Extremity Functional Score: 60 Improvement % Improvement: 98
== END 2025-01-28 19:00 | disposition home or self-care (01) ==
LOC: PT 14:30
PROVIDERS: PCP Family Medicine; Referring Provider Student in an Organized Health Care Education/Training Program; Visit Provider Student in an Organized Health Care Education/Training Program
DX: M76.61 Achilles tendinitis, right leg (principal); M76.821 Posterior tibial tendinitis, right leg
CPT/HCPCS: 97035; 97110; 97140; 97162; 97530

== ENCOUNTER → 2025-07-14 | Outpatient (CLI) | payer MEDICAID, SELFPAY ==
[2025-07-14 15:09] LABS: Hematocrit 36.8 % (37-47); Hemoglobin 12.7 g/dL (12.0-15.0); Immature Granulocytes Count 0.020 X10^3/uL (0.0-0.0); Mean Corp Hgb Conc 34.5 g/dL (32-36); Mean Corpuscular Volume 92.5 fL (81-99); Mean Platelet Vol. 10.0 fl (6.2-12.0); NRBC Flagged by Analyzer 0 % (0-5); Platelet Count 211 K/mm3 (150-450); RBC Distribution Width CV 13.1 % (11.6-14.6); RBC Distribution Width SD 44.5 fl (35.1-43.9); Red Blood Count 3.98 M/mm3 (4.2-5.4); White Blood Count 7.0 K/mm3 (4.4-11.0)
[2025-07-14 18:28] LABS: AST(SGOT) 22 U/L (<=31); Alanine Aminotransfer ALT/SGPT 23 U/L (<=34); Albumin, Serum 4.1 g/dL (3.4-4.8); Alkaline Phosphatase 92 U/L (35-104); Anion Gap 10 (5-15); BUN 22 mg/dL (4-19); BUN/Creat Ratio 27.2 RATIO (10-20); Calcium,Total 9.4 mg/dL (7.6-11.0); Carbon Dioxide 23.8 mmol/L (21.0-32.0); Chloride 105 mmol/L (98-108); Cholesterol 179 mg/dL (<=200); Ferritin 287 ng/mL (22-378); Globulin 2.9 g/dL (2.2-4.2); Glucose 100 mg/dL (70-99); Low Density Lipoprotein Calc. 119 mg/dL; Magnesium 2.0 mg/dL (1.5-2.2); Potassium 4.6 mmol/L (3.3-5.1); Triglycerides 108 mg/dL; Very Low Density Lipoprotein 22 mg/dL (5-40); cholesterol:hdl ratio screen 4.41
== END | disposition home or self-care (01) ==
PROVIDERS: PCP Family Medicine; Visit Provider Family Medicine
DX: R00.2 Palpitations (principal)
CPT/HCPCS: 36415; 80053; 80061; 82728; 83036; 83735; 84443; 85025

== ENCOUNTER → 2025-07-24 | Outpatient (CLI) | payer MEDICAID, SELFPAY ==
--- NOTE | 2025-07-24 06:44 | ECHOD_ITS ---
Reason For Study ECHO/Echo Complete
== END | disposition home or self-care (01) ==
LOC: CVS 06:44
PROVIDERS: PCP Family Medicine; Referring Provider Family Medicine; Visit Provider Family Medicine
DX: R00.2 Palpitations (principal)
CPT/HCPCS: 93306

== ENCOUNTER → 2025-09-10 | Outpatient (CLI) | payer MEDICAID, SELFPAY ==
[2025-09-10 12:34] LABS: Hematocrit 38.7 % (37-47); Hemoglobin 13.1 g/dL (12.0-15.0); Immature Granulocytes Count 0.020 X10^3/uL (0.0-0.0); Mean Corp Hgb Conc 33.9 g/dL (32-36); Mean Corpuscular Volume 93.5 fL (81-99); Mean Platelet Vol. 10.1 fl (6.2-12.0); NRBC Flagged by Analyzer 0 % (0-5); Platelet Count 208 K/mm3 (150-450); RBC Distribution Width CV 13.1 % (11.6-14.6); RBC Distribution Width SD 44.9 fl (35.1-43.9); Red Blood Count 4.14 M/mm3 (4.2-5.4); White Blood Count 6.7 K/mm3 (4.4-11.0)
[2025-09-10 13:00] LABS: AST(SGOT) 29 U/L (<=31); Alanine Aminotransfer ALT/SGPT 35 U/L (<=34); Albumin, Serum 4.3 g/dL (3.4-4.8); Alkaline Phosphatase 94 U/L (35-104); Anion Gap 10 (5-15); BUN 15 mg/dL (4-19); BUN/Creat Ratio 19.2 RATIO (10-20); Calcium,Total 9.4 mg/dL (7.6-11.0); Carbon Dioxide 24.9 mmol/L (21.0-32.0); Chloride 103 mmol/L (98-108); FOLATES,SERUM (FOLIC ACID) 18.90 ng/mL (4.60-34.80); Ferritin 311 ng/mL (22-378); Globulin 2.6 g/dL (2.2-4.2); Glucose 107 mg/dL (70-99); Iron 154 ug/dL (50-170); Iron Binding Capacity,Total 269 ug/dL (250-450); Iron Binding Capacity,Unsat 115 ug/dL (228-428); Potassium 4.3 mmol/L (3.3-5.1); Vitamin B12 731 pg/mL (180-914)
== END | disposition home or self-care (01) ==
LOC: VSLAB 10:35
PROVIDERS: PCP Family Medicine; Referring Provider Nurse Practitioner Family; Visit Provider Nurse Practitioner Family
DX: R73.03 Prediabetes (principal); R20.2 Paresthesia of skin
CPT/HCPCS: 36415; 80053; 82607; 82728; 82746; 83036; 83540; 83550; 85025